=== PATIENT | male | born 1990 | race Caucasian/White ===

== ENCOUNTER 2019-09-27 22:05 | Inpatient (IN) | payer BC, SELFPAY ==
[~2019-09-27] VITALS: Ht 177.8 cm; Wt 146.5 kg
[2019-09-27 22:14] VITALS: BP 124/60
[2019-09-27] MEDS ORDERED: ACETAMINOPHEN EXTRA STRENGTH 500 MG TAB PO ONE (22:30)
--- NOTE | 2019-09-27 22:37 | NUR ---
RT AT BEDSIDE.
--- NOTE | 2019-09-27 22:40 | NUR ---
DR. HEAD AT BEDSIDE.
--- NOTE | 2019-09-27 22:40 | NUR ---
29 YEAR OLD MALE COMPLAINS OF ANXIETY, SHORTNESS OF BREATHE, AND COUGH X 1 DAYS. PATIENT HAS FEVER OF 104 IN TRIAGE. PATIENT STATES THAT HIS GRANDFATHER JUST OF COVID19 AN HOUR PRIOR TO ARRIVAL AND HE LIVES TOGETHER WITH HIM. PATIENT SPO2 55% ON RA, LABORED BREATHING, RR 30, RHONCHI BILATERAL. PATIENT PLACED ON 6L NC, SPO2 ROZINA TO 87%. PATIENT AOX4, SKIN WARM AND WET. PATIENT PLACED ON MONITOR. HR 128, BP 128/68. ERMD AT BEDSIDE OF PATIENT. PMH - DENIES ALLERGIES - NKA
--- NOTE | 2019-09-27 22:54 | NUR ---
xr at bedside.
--- NOTE | 2019-09-27 23:00 | NUR ---
RSV, CORONAVIRUS, AND INFLUENZA SWABS SENT TO LAB
[2019-09-27 23:36] LABS: BASOPHILS % (AUTO) 0.2 % (0.0-2.0); HEMATOCRIT 39.3 % (36-52); HEMOGLOBIN 12.9 g/dL (12.0-18.0); LYMPHOCYTES # (AUTO) 0.7 K/uL (2.0-11.5); LYMPHOCYTES % (AUTO) 8.9 % (20.5-51.1); MEAN CORPUSCULAR HEMOGLOBIN 28 pg (27-31); MEAN CORPUSCULAR HGB CONC 33 g/dL (33-37); MEAN CORPUSCULAR VOLUME 83.8 fL (80-94); MONOCYTES # (AUTO) 0.2 K/uL (0.8-1.0); MONOCYTES % (AUTO) 2.9 % (1.7-9.3); NEUTROPHILS # (AUTO) 6.5 K/uL (1.8-7.7); PLATELET COUNT (AUTO) 199 K/uL (140-450); RED BLOOD CELL COUNT(AUTO) 4.69 MIL/uL (4.20-6.10); RED CELL DISTRIBUTION WIDTH 14.5 % (11.6-13.7); WHITE BLOOD COUNT (AUTO) 7.4 K/uL (4.8-10.8)
--- NOTE | 2019-09-27 23:42 | NUR ---
PATIENT ALERT AND AWAKE, BREATHING EVEN AND LABORED. ERMD AWARE OF PT STATUS.
[2019-09-27 23:53] LABS: ALBUMIN 2.9 g/dL (3.4-5.0); ANION GAP 11.1 (8-16); CREATININE 1.1 mg/dL (0.6-1.3); POTASSIUM 3.1 mmol/L (3.5-5.1); TOTAL BILIRUBIN 0.7 mg/dL (0.0-1.0)
[2019-09-28] VITALS (45 sets, daily range): BP systolic 84–154; BP diastolic 29–96
[2019-09-28] MEDS ORDERED: NACL 0.9% 1,000 ML IV SCH (00:24)
[2019-09-28] MEDS ORDERED: AZITHROMYCIN 500 MG in DEXTROSE 5% 250 ML IV SCH (00:25)
[2019-09-28] MEDS ORDERED: HYDROcodone/APAP 5/325 MG 1 TAB TAB PO PRN (00:25)
[2019-09-28] MEDS ORDERED: ALBUTEROL HFA MDI 90 MCG/ACTUATION 8 GM INH PRN (00:25)
[2019-09-28] MEDS ORDERED: DOCUSATE SODIUM 100 MG GELCAP PO PRN (00:25)
--- NOTE | 2019-09-28 01:13 | NUR ---
PATIENT ALERT AND AWAKE, BREATHING EVEN AND UNLABORED
[2019-09-28 01:14] LABS: MAGNESIUM 1.9 mg/dL (1.8-2.4); PHOSPHORUS 1.9 mg/dL (2.5-4.9)
[2019-09-28 01:29] LABS: CKMB RELATIVE INDEX 0.2 (0.0-2.5)
--- NOTE | 2019-09-28 01:36 | NUR ---
Placed patient on high flow nasal cannula 50lpm fio2 50. Patient stable spo2 95 hr 107 bpm no resp distress at this time.
[2019-09-28 02:43] LABS: APPEARANCE,URINE SL CLOUDY (CLEAR); BILIRUBIN,URINE 1+ (NEGATIVE); BLOOD, URINE 2+ (NEGATIVE); COLOR,URINE DARK YELLOW (YELLOW); LEUKOCYTE ESTERASE ,URINE NEGATIVE (NEGATIVE); NITRITE, URINE NEGATIVE (NEGATIVE); UGLUCOSE TRACE (NEGATIVE)
[2019-09-28 03:05] LABS: BARBITURATE, URINE NEGATIVE ng/ml (NEG <=200); BENZODIAZEPINE, URINE NEGATIVE ng/mL (NEG <=200); CANNABINOID, URINE NEGATIVE ng/mL (NEG <=50); COCAINE, URINE NEGATIVE ng/mL (NEG <=300); OPIATE, URINE NEGATIVE ng/mL (NEG <=2000); PHENCYCLIDINE SCREEN,URINE NEGATIVE ng/mL (NEG <=25)
--- NOTE | 2019-09-28 03:15 | NUR ---
PATIENT ALERT AND AWAKE, BREATHING EVEN AND UNLABORED. SPO2 WOULD DIP TO 86% THEN GO RIGHT BACK TO 92-94%. ERMD AWARE.
[2019-09-28] MEDS ORDERED: cefTRIAXone 1,000 MG VIAL ONE (03:48)
[2019-09-28] MEDS ORDERED: SODIUM PHOSPHATE 15 MMOLE in NACL 0.9% 250 ML IV SCH ×2 (03:55→08:00)
[2019-09-28] MEDS ORDERED: POTASSIUM CHLORIDE 10 MEQ TABER PO SCH (04:00)
--- NOTE | 2019-09-28 04:00 | NUR ---
PATIENT PLACED INTO PRONE POSITION, SPO2 95%
[2019-09-28 04:14] LABS: URINE AMORPHOUS URATE 4+ /HPF (None Seen); WBC,URINE 0-5 /HPF (0-5)
[2019-09-28] MEDS ORDERED: AZITHROMYCIN 500 MG INJ VIAL IV ONE (04:44)
--- NOTE | 2019-09-28 04:50 | NUR ---
AZITHROMYCIN ADMINISTERED ORDERED
--- NOTE | 2019-09-28 05:00 | NUR ---
PATIENT PLACED BACK INTO HIGH FOWLERS POSITION, SPO2 89%. ERMD AWARE
--- NOTE | 2019-09-28 05:28 | NUR ---
PATIENT ALERT AND AWAKE, BREATHING EVEN AND UNLABORED. SPO2 CONTINUES TO GO BETWEEN 86% AND 94%. ERMD IS AWARE.
--- NOTE | 2019-09-28 05:55 | NUR ---
PATIENT PLACED BACK INTO PRONE POSITION, ALERT AND AWAKE, BREATHING EVEN AND UNLABORED. SPO2 CONTINUES TO DRIFT BETWEEN 89% AND 93%. ERMD AWARE
[2019-09-28 06:14] LABS: BASOPHILS % (AUTO) 0.6 % (0.0-2.0); EOSINOPHILS # (AUTO) 0.1 K/uL (0-0.4); EOSINOPHILS % (AUTO) 1.2 % (0.0-4.0); HEMOGLOBIN 12.9 g/dL (12.0-18.0); LYMPHOCYTES # (AUTO) 0.8 K/uL (2.0-11.5); LYMPHOCYTES % (AUTO) 9.4 % (20.5-51.1); MEAN CORPUSCULAR HEMOGLOBIN 28 pg (27-31); MEAN CORPUSCULAR HGB CONC 33 g/dL (33-37); MEAN CORPUSCULAR VOLUME 83.8 fL (80-94); MONOCYTES # (AUTO) 0.1 K/uL (0.8-1.0); MONOCYTES % (AUTO) 1.8 % (1.7-9.3); PLATELET COUNT (AUTO) 210 K/uL (140-450); RED BLOOD CELL COUNT(AUTO) 4.65 MIL/uL (4.20-6.10); RED CELL DISTRIBUTION WIDTH 14.3 % (11.6-13.7)
--- NOTE | 2019-09-28 06:30 | NUR ---
CALLED FLEET SERVICE MANAGER REGARDING SODIUM PHOSPHATE MEDICATION, [facility] WILL GIVE MEDICAITON AT 7AM
[2019-09-28 07:06] LABS: ANION GAP 8.4 (8-16); CREATININE 1.1 mg/dL (0.6-1.3); POTASSIUM 3.4 mmol/L (3.5-5.1)
[2019-09-28 07:09] LABS: CHOL/HDL RATIO 3.2 (1-4.5)
--- NOTE | 2019-09-28 07:15 | NUR ---
PT TO ICU 2 FROM ER, PT AWAKE ALERT O4, RESP EVEN UNLABORED ON HIGH FLOW NC WITH FIO2 70%, PT PLACED ON MONITOR, PT PLACED ON ENHANCED PRECAUTION AND DROPLET PREC FOR R/O COVID, PT SPEAKS CLEARLY, PT DENIES PAIN OR DISCOMFORT, PT STATES HIS GRANDFATHER JUST WITH COVID 19, HE IS ANXIOUS AND WORRIED, PT MOVES ALL EXTS, PT ABLE TO SIT UP AND POSITION HIMSELF, PT ORIENTED TO ROOM AND UNIT, CALL BELLWITHIN REACH, PLAN OF CARE REVIEWED, WILL CONTINUE TO MONITOR.
--- NOTE | 2019-09-28 07:15 | NUR ---
Patient will be admitted to care of DR BARNHART. Admited to ICU. Will go to room 2. Belongings list completed. Report to MYRANDA SIMS. Nurse notified that sodium phosphate medication must still be administered
[2019-09-28] MEDS: ASCORBIC ACID 500 MG TAB PO SCH (08:12)
[2019-09-28] MEDS: ZINC SULF 220 MG CAP PO SCH (08:13)
[2019-09-28] MEDS: ENOXAPARIN 40 MG/0.4 ML SYR SUBQ SCH (08:14)
--- NOTE | 2019-09-28 08:35 | NUR ---
PT SITTING UP AT SIDE OF BED, EATING BREAKFAST. PT C/O FEELING HOT, DIAPHORETIC, ISOLATION ROOM VERY WARM WITH HEPA FILTER, PT REQUESTS ROOM TEMP TO BE LOWERED, WILL CALL ENGINEERING, TEMP 102.3 TA, WILL GIVE TYLENOL. ICE WATER GIVEN PER REQUEST.
--- NOTE | 2019-09-28 08:37 | NUR ---
PATIENT HAS BEEN SCREENED AND CATEGORIZED HIGH NUTRITION RISK. PATIENT WILL BE SEEN WITHIN 1-2 DAYS OF ADMISSION. 09/28/19-09/29/[address]
[2019-09-28] MEDS: ACETAMINOPHEN 325 MG TAB PO PRN (09:00)
[2019-09-28] MEDS ORDERED: HYDROXYCHLOROQUINE 200 MG TAB PO SCH (09:00)
--- NOTE | 2019-09-28 09:15 | NUR ---
PT INTERMITTENTLY DROPS O2 SAT LOW 70'S, DR CROOK AND DR BUSTAMANTE MADE AWARE, PRONE POSITION ENCOURAGED, PT STATES IT MAKES HIM VERY UNCOMFORTABLE, REFUES TO GO PRONE AT THIS TIME, PT WANTS TO SIT ON CHAIR INSTEAD. DR CROOK AWARE.
[2019-09-28] MEDS ORDERED: LORazepam 2 MG/ML VIAL ONE (09:36)
[2019-09-28] MEDS ORDERED: LORazepam 2 MG/ML VIAL IM/IVP SCH (09:41)
--- NOTE | 2019-09-28 10:15 | NUR ---
PT STATES HE IS VERY WORRIED, ANXIOUS, REQUESTS SOMETHING TO HELP HIM REST, HE ALSO REQUESTS TO SPEAK TO MD, DR CROOK CALLED PT ON CELL PHONE FROM OUTSIDE THE ROOM TO TALK POC AND CURRENT CONDITION, ATIVAN GIVEN IVP.
[2019-09-28] MEDS ORDERED: ADENOSINE 6 MG/2 ML VIAL IVP ONE (11:15)
--- NOTE | 2019-09-28 11:45 | NUR ---
09/28/19 RD INITIAL ASSESSMENT COMPLETED PLEASE REFER TO NUTRITION ASSESSMENT UNDER CARE ACTIVITY FOR ESTIMATED NUTRITIONAL NEEDS. 1. CONTINUE CARDIAC DIET TOLERATED 2. RECOMMEND ENSURE MAX ONCE DAILY 3. IF PO INTAKE <50% CONSIDER RECOMMEND ENSURE MAX BID 4. RD TO FOLLOW-UP 3-5 DAYS, MODERATE RISK DEB YUN RD
--- NOTE | 2019-09-28 12:30 | NUR ---
PT SITTING UP AT SIDE OF BED, O2SAT 60-85% ON HIGH FLOW FIO2 100% AT 30L, PT SPEAKS CLEARLY, DENIES SOB, INTERMITTENT DRY COOUGH, RT INFORMED, DR CROOK / DR BUSTAMANTE NOTIFIED. PT PLACED ON PRONE POSITION, PULSE OX PROBE CHANGED, DR CROOK ON THE PHONE WITH DR CURRY. HR 120'S, RR 20-28, BP 131/73
[2019-09-28] MEDS: HYDROXYCHLOROQUINE 200 MG TAB PO SCH ×2 (12:44→22:00)
[2019-09-28] MEDS ORDERED: PROPOFOL 1000 MG/100 ML PREMIX 100 ML IV ONE (13:52)
--- NOTE | 2019-09-28 14:00 | NUR ---
DR MORALES AT BEDSIDE, RT BETTY AT BEDSIDE PROCEDURE EXPLAINED TO PT AGREES, ETT PLACED 8.0, 23CM AT TEETH
[2019-09-28] MEDS ORDERED: DILTIAZEM 25 MG/5 ML VIAL IVP ONE (14:03)
[2019-09-28] MEDS ORDERED: fentaNYL 1 MG in NACL 0.9% 80 ML IV PRN (14:05)
[2019-09-28] MEDS ORDERED: PROPOFOL 1000 MG/100 ML PREMIX 100 ML IV PRN (14:05)
[2019-09-28] MEDS ORDERED: MIDAZOLAM MDV 50 MG in NACL 0.9% 40 ML IV PRN (14:05)
--- NOTE | 2019-09-28 14:05 | NUR ---
PT INTUBATED WITH 8.0 ETT SECURED @23TEETH/GUM. PT PLACED ON VENT SETTINGS AC 16, VT 500, PEEP 16 AND FIO2 100%. BILATERAL BREATH SOUNDS. VENT IS PLUGGED INTO A RED OUTLET WITH ALARMS ON AND FUNCTIONING. AIRWAY IS PATENT AND ETT IS SECURE. WILL CONTINUE TO MONITOR.
[2019-09-28] MEDS ORDERED: DILTIAZEM 25 MG/5 ML VIAL IVP SCH (14:06)
--- NOTE | 2019-09-28 14:15 | NUR ---
HR 140-150, BP177/92, CARDIZEM 15MG GIVEN PER DR MORALES.
--- NOTE | 2019-09-28 14:32 | NUR ---
ABG RESULTS GIVEN TO . PHYSICIAN NOTIFIED ATTENDING PUMP RUNNER AND NEW VENT SETTINGS ORDER AC 22, VT 450 , PEEP 16, FIO2 100%. WILL CONTINUE TO MONITOR.
--- NOTE | 2019-09-28 14:40 | NUR ---
OGT PLACED, MONTERO PLACED, COFFEE GROUND LARGE AMT DRAINED FROM OG, DR BUSTAMANTE/DR RCOOK AWARE, PLACE ON LOW IN TERMITTENT SUX.
--- NOTE | 2019-09-28 15:08 | NUR ---
DC PLANNIN YRS OLD MALE PATIENT WAS ADMITTED FROM HOME WITH A DX OF PNA, R/O COVID, RESP FAILURE. PT HAS A HX OF ASTHMA, CXRAY PATCHY BILATERAL PULMONARY INFILTRATE RT GREATER THAT LEFT , RT PROTOCOL W/MDI ALBUTEROL PRN SOB . STARTED IV AZITHROMYCIN AND ZINC 200 MG PO . INFLUENZA A&B NEGATIVE, BLOOD AND URINE CULTURE PENDING. PULMO AND ID CONSULT. CM TO FOLLOW Addendum: 09/29/19 at 0900 by Mary Mortensen CM ORALLY INTUBATED TO VENT, FIO2 70%, O2 SAT 96%. SEDATED WITH FENTANYL AND VERSED. CURRENT LABS INCLUDE WBC 9.7, H/H 12.3/37, NA/K 133/4.0, BUN/CREA 24/1.7.5 AND D DIMER 1380. COVID 19 RESULTS STILL PENDING. ON AZITHROMYCIN, ROCEPHIN AND SOLU-MEDROL. ON BREATHING TREATMENT. ID, CARDIO AND ULMO CONSULTS IN PLACE. DC PLAN PENDING ON PATIENT'S RESPONSE TO TREATMENT. Addendum: 10/01/19 at 0848 by Mary Mortensen CM STILL IN ICU. ORALLY INTUBATED TO VENT FIO2 40%, O2 SAT 99%. SEDATED WITH VERSED AND FENTANYL DRIPS. STILL ON PLAQUENIL, AZITHROMYCIN AND ROCEPHIN. (+) COVID AND (-) FOR INF A AND B CURRENT LABS INCLUDE WBC 7.3, H/H 10.7/32.7, NA/K 139/3.9, BUN/CREA 73/2.5 AND LACTIC ACID 2.3. BLOOD CS SHOWED NO GROWTH AFTER 48 HOURS. URINE CS NO GROWTH. SPUTUM CS PRELIMINARY RESULTS SHOWED RARE GRAM POSITIVE COCCI. SEEN BY PULMO AND ID CONSULTS. DC PLAN PENDING ON PATIENT'S RESPONSE TO TREATMENT. Addendum: 10/01/19 at 1432 by Mary Mortensen PER , [facility] [phone] OF [facility] [employer] [facility], ASKING ABOUT DC PLAN. UPDATED OF THE PATIENT'S CONDITION. Addendum: 10/02/19 at 1531 by Mary Mortensen CM STILL IN ICU, ORALLY INTUBATED TO VENT, FIO2 35% AND O2 SAT 97%. CURRENT LABS INCLUDE WBC 8.4, H/H 10.8/31.9, NA/K 145/3.7, BUN/CREA 88/1.9, MAG 3.5 AND LACTIC ACID 2.9. ON AZITHROMYCIN, PLAQUENIL AND ROCEPHIN. SEDATED WITH MORPHINE DRIP. PULMO, ID AND NEPHRO CONSULTS IN PLACE. DC PLAN PENDING ON PATIENT'S RESPONSE TO TREATMENT. Addendum: 10/03/19 at 1126 by Mary Mortensen CM CONTACTED [facility] AT [phone], PROVIDED HER VERBAL UPDATES ON THE PATIENT'S CONDITION. SHE STATED SHE RECEIVED CLINICALS AND IS IN THE PROCESS OF REVIEWING IT. SHE ALSO STATED SINCE THE PATIENT IS STILL IN ICU, INTUBATED, SEDATED AND COVID POSITIVE THEY WILL EXTEND THE AUTH AND WILL BE FAXING IT. Addendum: 10/04/19 at 1059 by Mary Mortensen CM ON PRONING. MAX ON MORPHINE AND PROPOFOL SEDATION. NO PRESSORS. ETT TO TULIO, FIO2 35% AND O2 SAT 98%. STILL ON SOLU-MEDROL AND ROCEPHIN. ID, NEPHRO, PULMO IN PLACE. DC PLAN PENDING ON PATIENT'S RESPONSE TO TREATMENT. Addendum: 10/05/19 at 1102 by Mary Mortensen CM ABLE TO TOLERATE 1 HOUR OF CPAP TRIAL YESTERDAY. FOR CPAP TRIAL AGAIN TODAY. Addendum: 10/08/19 at 1505 by Leni Barajas CM DC PLANNING: PATIENT STILL HAVE MONTERO CATH , FEELING BETTER D-DIMER 2800 , CONTACT AND DROPLET ISOLATION CONTINUED DR GAVIRIA RECOMMENDED TO CONTINUE CURRENT IV ABX ROCEPHIN AND AZITHROMYCIN . DC PLAN PER RECOMMENDATIONS CM TO FOLLOW . Addendum: 10/09/19 at 1406 by Serenity Lloyd CM Received CM order to arrange home O2. Spoke to [facility] DC financial plannerNeda, who stated [facility] has a contract with [employer]. Request faxed to [facility]; [facility] will continue following up as needed. [facility] phone . REGINA Harvey Ext [phone] Addendum: 10/09/19 at 1537 by Serenity Lloyd CM O2 to be provided by [facility]. Portable will be delivered to [facility] front lobby and [facility] will arrange with family to deliver the concentrator. REGINA Harvey Ext [phone] Addendum: 10/09/19 at 1642 by Leni Barajas CM DC PLANNING: [employer] WILL DELIVER THE PORTABLE O2 AT [facility] BETWEEN 4-8PM AND WILL DELIVER O2 TANK AT PT'S HOME.PT CAN BE DC HOME ONCE HE GETS THE POTABLE O2 .
--- NOTE | 2019-09-28 15:08 | NUR ---
DR LAY AT BEDSIDE FOR CENTRAL LINE PLACEMENT
[2019-09-28] MEDS ORDERED: ROCURONIUM 50 MG/5 ML VIAL IV SCH (15:30)
--- NOTE | 2019-09-28 15:40 | NUR ---
PT CONTINUES WITH LOW O2 SAT DR CURRY CALLED BY DR CROOK, 50MG ROCURONIUM GIVEN IVP AT THIS TIME. DR LAY CONTINUES TO ATTEMPT CENTRAL LINE PLACEMENT. RT HERNÁNDEZ AT BEDSIDE TO ADJUST VENT SETTINGS
--- NOTE | 2019-09-28 16:40 | NUR ---
PT PLACED IN PRONE POSITION BY RT BETTY, DR CROOK, DR LAY, DR BUSTAMANTE, & 2 OTHER STAFF, BONY PRONIMENCES COVERED WITH FOAM DRESSING, PILLOWS UNDER PT. ETT REMAINS IN PLACE, HEAD ON FOAM PILLOW. Addendum: 09/28/19 at 2200 by Beatriz Gurrola RN BED IN [facility]
[2019-09-28] MEDS ORDERED: fentaNYL 0.05 MG/ML VIAL ONE (16:50)
--- NOTE | 2019-09-28 17:00 | NUR ---
IV ACCIDENTALLY DISLODGED DURING TURNING, NEW IV STARTED TO LEFT HAND 22G, PT AROUSING, 100MCG FENTANYL PIV PUSH GIVEN PER DR CURRY, DR CURRY ON THE UNIT.
--- NOTE | 2019-09-28 17:13 | NUR ---
BEDSIDE VENT SETTINGS AC 22, VT 450, PEEP 18 AND FIO2 100%. WILL CONTINUE TO MONITOR ABG IN 1 HOUR.
[2019-09-28] MEDS: MIDAZOLAM MDV 100 MG in NACL 0.9% 80 ML IV PRN ×2 (17:45→23:15)
--- NOTE | 2019-09-28 18:05 | NUR ---
DR CURRY NOTIFIED THAT PT IS ON PROPOFOL AT MAX DOSE, PT WITH COFFEE COLOR OGT DRAINAGE 250ML.
[2019-09-28] MEDS ORDERED: ACETAMINOPHEN 650 MG SUPP RC ONE (18:07)
--- NOTE | 2019-09-28 18:15 | NUR ---
TEMP 103.4 RECTALLY, TYLENOL 650MG GIVEN CT AT THIS TIME, COOLING MEASURE WITH WET CLOTHS.
[2019-09-28] MEDS ORDERED: fentaNYL 0.05 MG/ML VIAL IVP ONE (18:35)
[2019-09-28] MEDS ORDERED: ACETAMINOPHEN 650 MG SUPP RC PRN (19:10)
--- NOTE | 2019-09-28 19:30 | NUR ---
RECEIVED BEDSIDE REPORT FROM AM SHIFT RN MYRANDA, FOR PT'S CONTINUITY OF CARE. PT IS INTUBATED ETT TO VENT, SEDATED, ON PRONE POSITION, OG TUBE IN PLACE ON LOW INTERMITTENT SUCTION, HAS LEFT HAND 22G WITH PROPOFOL INFUSING, AND LEFT FOOT 22G INFUSING WITH FENTANYL AND MIDAZOLAM, PT SATURATION AT 99%. COOLING MEASURES, SAFETY MEASURES, AND ISOLATION PRECAUTION IN PLACE. WILL MONITOR PT THROUGHOUT SHIFT.
--- NOTE | 2019-09-28 19:30 | NUR ---
REPORT GIVEN TO DITCH CLEANER NURSE, PT SEDATED TO RASS-3, ETT TO VENT, ACVC [id number], 450,22,PEEP18, PT IN PRONE POSITION, LEFT ARM UP BY FACE, RIGHT ARM ON HIS SIDE, PIV 22G TO LEFT HAND, 22G TO LEFT FOOT, SITES WNL, VITALS STABLE ON MONITOR, PT ON FENTANYL AT 1MCG/KG/HR, VERSED 7MG/HR, PROPOFOL 30MCG/KG/MIN (25.2ML/HR).
--- NOTE | 2019-09-28 20:30 | NUR ---
PT TEMP TAKEN RECTALLY - 101.4, COOLING MEASURES IN PLACE. PICC RN SETTING UP FOR PICC LINE INSERTION, STAFF TURNED PT TO SUPINE FOR INSERTION, PT OXYGEN SATURATION AT 98%. WILL CONFIRM PLACEMENT WITH XRAY.
--- NOTE | 2019-09-28 20:32 | NUR ---
AT 1925 ABG RESULTS WERE REPORTED TO DR. CURRY. PER DR. CURRY TITRATE FiO2 PER PROTOCOL AND KEEP SPO2 >90%. NO OTHER CHANGES WERE MADE ON VENT SETTINGS. RECEIVED REPORT FROM AM SHIFT. PATIENT SEEN AND ASSESSED. PATIENT IS BEING PRONE. PATIENT IS INTUBATED WITH ETT SIZE 8.0 AND SECURED WITH ANCHOR-FAST AT 23CM. FOUND PATIENT ON VENT SETTINGS: AC/VC 22, 450, +18, 100% WITH SPO2 OF 98%. FiO2 TITRATED TO 80% WITH SPO2 OF 94%. AUSCULTATION REVEALS COARSE BILATERAL BREATH SOUNDS. VENT PLUGGED IN RED OUTLET, ALARMS SET AND AUDIBLE, AND BVM AT BEDSIDE. PATIENT IS IN NO APPARENT RESPIRATORY DISTRESS AT THIS TIME. WILL CONTINUE TO MONITOR PATIENT.
[2019-09-28] MEDS: methylPREDNISolone SS 40 MG/ML VIAL IVP SCH (21:15)
--- NOTE | 2019-09-28 21:35 | NUR ---
PICC LINE VERIFIED VIA XRAY. OK TO USE PER PICC LINE RN. FENTANYL, MIDAZOLAM, AND PROPOFOL CONNECTED TO THE RIGHT UPPER PICC LINE. PT TURNED BACK TO PRONE POSITION. PT SATURATION AT 90%.
[2019-09-28] MEDS: ACETAMINOPHEN 650 MG SUPP RC PRN (22:12)
--- NOTE | 2019-09-28 22:15 | NUR ---
ADMINISTERED ACETAMINOPHEN SUPPOSITORY AND HYDROXYCHLOROQUINE PO. COOLING MEASURES IN PLACE. INTERMITTENT SUCTION IN PLACE. WILL CONTINUE TO MONITOR.
--- NOTE | 2019-09-28 22:40 | NUR ---
AT APPROXIMATELY 2109 PATIENT WAS TURNED TO SUPINE POSITION FOR PICC LINE. PATIENT STARTED TO DESAT. FiO2 WAS INCREASED TO 100% AND PEEP TO 20 CMH20 WITH SPO2 OF 91%. DR. ABRAHAM AT BEDSIDE. AT 2129 PATIENT WAS TURNED BACK TO PRONE POSITION AFTER PROCEDURE. FiO2 TITRATED TO 80% AND PEEP BACK TO [address] ABRAHAM AT BEDSIDE. WILL CONTINUE TO MONITOR PATIENT.
--- NOTE | 2019-09-28 23:35 | NUR ---
RECTAL TEMP TAKEN - 100.1, COOLING MEASURES/COLD WASHCLOTHS IN PLACE. NO RESPIRATORY DISTRESS NOTED. NEW IV FENTANYL AND MIDAZOLAM ADMINISTERED. WILL CONTINUE TO MONITOR PT.
[2019-09-29] VITALS (105 sets, daily range): BP systolic 89–130; BP diastolic 38–87
[2019-09-29] MEDS ORDERED: MIDAZOLAM MDV 100 MG in NACL 0.9% 80 ML IV PRN ×2
--- NOTE | 2019-09-29 01:30 | NUR ---
RT AND CAT SWAMPER REPOSITIONED PT'S HEAD AND HAND. NO RESPIRATORY DISTRESS NOTED, ETT IN PLACE. PT MADE COMFORTABLE. INTERMITTENT SUCTION STILL IN PLACE.
--- NOTE | 2019-09-29 01:30 | NUR ---
REPOSITIONED PATIENT'S HEAD AND HAND. PATIENT TOLERATED PROCEDURE WELL WITH NO RESPIRATORY DISTRESS. AIRWAY PATENT. FiO2 TITRATED TO 70% WITH SPO2 OF 95%. WILL CONTINUE TO MONITOR PATIENT.
--- NOTE | 2019-09-29 04:01 | NUR ---
PT SATURATION AT 99% FIO2 AT 70%, HR AT 106, BP 130/76, NO RESPIRATORY DISTRESS NOTED. ETT PATENT, IV PICC LINE PATENT AND INTACT. WILL CONTINUE TO MONITOR PT.
[2019-09-29 04:59] LABS: BASOPHILS % (AUTO) 0.3 % (0.0-2.0); HEMATOCRIT 37.5 % (36-52); HEMOGLOBIN 12.3 g/dL (12.0-18.0); LYMPHOCYTES # (AUTO) 0.3 K/uL (2.0-11.5); LYMPHOCYTES % (AUTO) 3.6 % (20.5-51.1); MEAN CORPUSCULAR HEMOGLOBIN 28 pg (27-31); MEAN CORPUSCULAR HGB CONC 33 g/dL (33-37); MEAN CORPUSCULAR VOLUME 84.6 fL (80-94); MONOCYTES # (AUTO) 0.2 K/uL (0.8-1.0); MONOCYTES % (AUTO) 2.1 % (1.7-9.3); NEUTROPHILS # (AUTO) 9.1 K/uL (1.8-7.7); PLATELET COUNT (AUTO) 188 K/uL (140-450); RED BLOOD CELL COUNT(AUTO) 4.43 MIL/uL (4.20-6.10); RED CELL DISTRIBUTION WIDTH 14.9 % (11.6-13.7); WHITE BLOOD COUNT (AUTO) 9.7 K/uL (4.8-10.8)
--- NOTE | 2019-09-29 05:00 | NUR ---
RECTAL TEMP 101.8, COOLING MEASURES IN PLACE, TYLENOL SUPPOSITORY GIVEN, BLOOD DRAW FROM PICC LINE NO RESISTANCE, OGT DRAIN 250ML, URINE OUTPUT 200ML, CHG BATH/WIPE GIVEN, PT MADE COMFORTABLE, NO RESPIRATORY DISTRESS NOTED. WILL CONTINUE TO MONITOR PT.
[2019-09-29] MEDS: ACETAMINOPHEN 650 MG SUPP RC PRN ×3 (05:09→23:27)
--- NOTE | 2019-09-29 05:55 | NUR ---
PATIENT HEAD AND HAND WERE REPOSITIONED. CLOSE SUCTION ELLER CHANGED. PATIENT STILL REMAINS ON VENTILATOR SUPPORT. NO CHANGE IN VENT SETTINGS AT THIS TIME. PER PROTOCOL, FiO2 HAS BEEN TITRATED TO 70%. AIRWAY IS PATENT. NO RESPIRATORY DISTRESS NOTED AT THIS MOMENT. WILL CONTINUE TO MONITOR PATIENT.
[2019-09-29] MEDS: fentaNYL 1 MG in NACL 0.9% 80 ML IV PRN ×3 (06:32→22:04)
[2019-09-29 06:36] LABS: ANION GAP 10.6 (8-16); CARBON DIOXIDE 31.4 mmol/L (21-32); CREATININE 1.7 mg/dL (0.6-1.3)
--- NOTE | 2019-09-29 06:45 | NUR ---
RECEIVED INTUBATED PT WITH A 8.0 ETT SECURED @23 TEETH/GUM ON VENT. SETTINGS AC 22, VT 450, PEEP 18 AND FIO2 70%. PT IN THE PRONE POSITION AT THIS TIME TOLERATING VENT SETTINGS WELL, NOT IN ANY DISTRESS. AIRWAY IS PATENT AND SECURE. VENT IS PLUGGED INTO A RED OUTLET WITH ALARMS ON AND FUNCTIONING. WILL CONTINUE TO MONITOR.
--- NOTE | 2019-09-29 06:55 | NUR ---
ABG RESULTS GIVEN TO WHO CONTACTED ROLL SHEETING CUTTER WITH RESULTS NO NEW VENT CHANGES AT THIS TIME. WILL CONTINUE TO MONITOR.
[2019-09-29] MEDS: methylPREDNISolone SS 40 MG/ML VIAL IVP SCH ×3 (07:00→21:59)
--- NOTE | 2019-09-29 07:25 | NUR ---
RECEIVED REPORT FROM NIGHT NURSE HENRIETTA. PT IN PRONE POSITION RASC SCORE -4 RECEIVING FENTANYL AND VERSED IN R UA PICC LINE PER ORDER. L FOOT 22G IV PRESENT INFUSING IVF AND ABX. ETT TO VENT, O2 SAT 98%. OG TUBE IN PLACE ON INTERMITTENT SUCTION. COOLING AND ISOLATION MEASURES IN PLACE. WILL CONTINUE TO MONITOR.
[2019-09-29] MEDS: MIDAZOLAM MDV 100 MG in NACL 0.9% 80 ML IV PRN ×2 (07:33→22:05)
[2019-09-29 07:34] LABS: MAGNESIUM 2.2 mg/dL (1.8-2.4); PHOSPHORUS 4.2 mg/dL (2.5-4.9)
--- NOTE | 2019-09-29 08:42 | NUR ---
TALKED TO PTS SISTER ON THE PHONE AND UPDATED HER ON CONDITION OF PT. WILL CONTINUE TO MONITOR.
[2019-09-29] MEDS ORDERED: AZITHROMYCIN 500 MG in DEXTROSE 5% 250 ML IV SCH (09:00)
[2019-09-29] MEDS ORDERED: HYDROXYCHLOROQUINE 200 MG TAB PO SCH (09:00)
[2019-09-29] MEDS ORDERED: AZITHROMYCIN 250 MG TAB PO SCH (09:00)
[2019-09-29] MEDS: AZITHROMYCIN 250 MG in DEXTROSE 5% 250 ML IV SCH (09:16)
[2019-09-29] MEDS: ASCORBIC ACID 500 MG TAB PO SCH (09:18)
[2019-09-29] MEDS: HYDROXYCHLOROQUINE 200 MG TAB PO SCH (09:18)
[2019-09-29] MEDS: ZINC SULF 220 MG CAP PO SCH (09:19)
[2019-09-29] MEDS: ENOXAPARIN 40 MG/0.4 ML SYR SUBQ SCH ×2 (09:25→21:59)
--- NOTE | 2019-09-29 09:49 | NUR ---
MEDICATIONS ADMINISTERED PER ORDER. UNABLE TO GIVE PO MEDICATIONS DUE TO PTS POSITION APPARENTLY IMPEDING ENTERING OF MEDS. WILL RETRY AT A LATER TIME. TEMP 100.2 AT THIS TIME. RASC -4. NO DISTRESS NOTED.
[2019-09-29] MEDS: FUROSEMIDE 20 MG/2 ML VIAL IVP SCH (10:15)
--- NOTE | 2019-09-29 11:32 | NUR ---
PT IN BED RASS OF -4. RESPIRATIONS EVEN AND UNLABORED ON ETT TO VENT. VITAL SIGNS STABLE. SAFETY MEASURES IN PLACE. WILL CONTINUE TO MONITOR.
[2019-09-29] MEDS ORDERED: ENOXAPARIN 100 MG/ML SYR SUBQ SCH (12:00)
--- NOTE | 2019-09-29 13:22 | NUR ---
PT IN PRONE POSITION, NO RESPIRATORY DISTRESS NOTED. RASS OF -4. SAFETY MEASURES IN PLACE. WILL CONTINUE TO MONITOR.
--- NOTE | 2019-09-29 13:59 | NUR ---
PT REMAINS IN PRONE POSITION NOT IN ANY DISTRESS AT THIS TIME. VENT ALARMS ON AND FUNCTIONING. ETT SECURE. WILL CONTINUE TO MONITOR.
--- NOTE | 2019-09-29 14:28 | NUR ---
PT OUT OF PRONE POSITION WITH HEAD OF BED ELEVATED. ETT IS SECURE WITH A PATENT AIRWAY. PT NOT IN ANY DISTRESS AT THIS TIME.
--- NOTE | 2019-09-29 14:31 | NUR ---
PT IN SUPINE POSITION AFTER 16HS IN PRONE POSITION. PT TOLERATED WELL, NO RESPIRATORY DISTRESS NOTED. TEMP TAKEN WITH TEMPORAL ARTERY 97.7, WILL RECHECK. LINEN CHANGED. MONTERO CARE DONE. WILL CONTINUE TO MONITOR.
--- NOTE | 2019-09-29 15:46 | NUR ---
ABG RESULTS GIVEN TO AND FORWARD TO . COMMUNICATION MANAGER REQUEST PT TO BE PLACED IN PRONE POSITION @2100. NEW VENT SETTINGS AC 26, VT 450, PEEP 16 AND FIO2 70%. WILL CONTINUE TO MONITOR.
--- NOTE | 2019-09-29 16:18 | NUR ---
VENT SETTINGS CHANGED TO AC 26, VT 450, PEEP 16 AND FIO2 70%. NURSE AWARE OF CHANGE. WILL CONTINUE TO MONITOR.
--- NOTE | 2019-09-29 17:26 | NUR ---
PT NOT IN ANY DISTRESS AT THIS TIME. REMAINS ON DOCUMENTED VENT SETTINGS. VENT ALARMS ON AND FUNCTIONING. AIRWAY IS PATENT AND SECURE.
--- NOTE | 2019-09-29 18:14 | NUR ---
PT REPOSITIONED, TUBE FEEDING RATE INCREASED FROM 20ML/H TO 40ML/H AFTER 0 RESIDUALS. NO RESPIRATORY DISTRESS NOTED. WILL CONTINUE TO MONITOR.
--- NOTE | 2019-09-29 19:04 | NUR ---
PT ENDORSED TO NIGHT NURSE FOR CONTINUITY OF CARE.
--- NOTE | 2019-09-29 19:30 | NUR ---
RECEIVED PT FROM BRANDY SIMS, PT RASS -4 DRY WEIGHT 140 KG, PICC EFE INFUSING FENTANYL 0.01 MCG/KG/HR, VERSED 7 MG/HR, ETT TO VENT SETTINGS FIO2 70 VT 450 RR 26 PEEP 16, PT HAS OGT TO FEEDING COSMOLITE 1.2 40 ML AT ENDORSEMENT GOAL 70ML/HR WATER FLUSH 100 ML Q6HR, PT HAS LEFT FOOT 22 G. S1 S2 HEART SOUNDS HEARD LUNG SOUNDS CLEAR UPPER LOWER LOBES, PULSES PALPABLE BILATERAL UPPER AND LOWER EXTREMITIES, PT HAS MONTERO CATHETER IN PLACE DRAINING CLOUDY YELLOW URINE, HOB 30 DEGREES PER PROTOCOL, BED IN [facility] WITH SAFETY PROTOCOLS IN PLACE, WILL CONTINUE TO MONITOR PT. Addendum: 09/30/19 at 0543 by Marco Bishop RN FENTANYL 1 MCG/KG/HR
[2019-09-29] MEDS ORDERED: LOVENOX 1MG/KG Q12H SUBQ SCH (21:00)
[2019-09-29] MEDS: PANTOPRAZOLE 40 MG INJ VIAL IVP SCH (21:59)
[2019-09-29] MEDS: ENOXAPARIN 100 MG/ML SYR SUBQ SCH (21:59)
--- NOTE | 2019-09-29 23:30 | NUR ---
PT PLACED IN PRONE POSITION, REVERSE TRENDELENBURG, BED BATH, MONTERO CARE, VAP CARE PROVIDED, RT AT BEDSIDE PT HAS TEMP 101.9 TYLENOL 650 MG SUPPOSITORY GIVEN WILL REEVALUATE PT, PT TOLERATING ACTIVITIES, WILL CONTINUE TO MONITOR
--- NOTE | 2019-09-29 23:55 | NUR ---
PT PLACED IN PRONE POSITION. HEAD TURNED TO THE RIGHT. ETT SECURED AT DOCUMENTED SETTINGS. PT IS IN NO DISTRESS. WILL CONT TO MONITOR. RN AT BEDSIDE
[2019-09-30] VITALS (99 sets, daily range): BP systolic 80–120; BP diastolic 32–64
--- NOTE | 2019-09-30 01:34 | NUR ---
REASSED PT TEMP, TEMP DECREASED TO 99.5 F RECTAL, WILL CONTINUE TO MONITOR PT.
--- NOTE | 2019-09-30 04:30 | NUR ---
PT REMAINS SEDATED RASS -4, PT REMAINS PRONE, PT TEMP INCREASED TO 100.3 PROVIDED COOLING MEASURES FOR PT, WILL CONTINUE TO MONITOR
[2019-09-30 05:20] LABS: BASOPHILS % (AUTO) 0.4 % (0.0-2.0); HEMATOCRIT 33.4 % (36-52); HEMOGLOBIN 10.8 g/dL (12.0-18.0); LYMPHOCYTES # (AUTO) 0.3 K/uL (2.0-11.5); LYMPHOCYTES % (AUTO) 5.1 % (20.5-51.1); MEAN CORPUSCULAR HEMOGLOBIN 28 pg (27-31); MEAN CORPUSCULAR HGB CONC 32 g/dL (33-37); MEAN CORPUSCULAR VOLUME 85.3 fL (80-94); MONOCYTES # (AUTO) 0.2 K/uL (0.8-1.0); MONOCYTES % (AUTO) 3.4 % (1.7-9.3); NEUTROPHILS # (AUTO) 5.9 K/uL (1.8-7.7); NEUTROPHILS % (AUTO) 91.1 % (42.2-75.2); PLATELET COUNT (AUTO) 204 K/uL (140-450); RED BLOOD CELL COUNT(AUTO) 3.91 MIL/uL (4.20-6.10); RED CELL DISTRIBUTION WIDTH 14.9 % (11.6-13.7); WHITE BLOOD COUNT (AUTO) 6.4 K/uL (4.8-10.8)
--- NOTE | 2019-09-30 05:34 | NUR ---
PT REMAINS ON DOCUMENTED SETTING. BMV AT BEDSIDE. ALARMS AUDIBLE. ETT SECURED AND INTACT. NO DISTRESS NOTED
[2019-09-30 06:39] LABS: ANION GAP 7.4 (8-16); CARBON DIOXIDE 34.6 mmol/L (21-32); CREATININE 2.7 mg/dL (0.6-1.3)
[2019-09-30] MEDS ORDERED: fentaNYL 0.05 MG/ML VIAL ONE (07:00)
[2019-09-30] MEDS: fentaNYL 1 MG in NACL 0.9% 80 ML IV PRN ×3 (07:09→21:59)
[2019-09-30 07:32] LABS: PHOSPHORUS 3.4 mg/dL (2.5-4.9)
--- NOTE | 2019-09-30 07:59 | NUR ---
RECEIVED INTUBATED PT WITH A 8.0 ETT SECURED @23 TEETH/GUM ON VENT. SETTINGS AC 26, VT 450, PEEP 16 AND FIO2 TITRATED TO 60%. PT IN THE PRONE POSITION AT THIS TIME TOLERATING VENT SETTINGS WELL, NOT IN ANY DISTRESS. AIRWAY IS PATENT AND SECURE. VENT IS PLUGGED INTO A RED OUTLET WITH ALARMS ON AND FUNCTIONING. WILL CONTINUE TO MONITOR.
--- NOTE | 2019-09-30 08:04 | NUR ---
PT SEDATED, RASS-4 NO ACUTE DISTRESS @ THIS TIME. SAFETY PRECAUTIONS IN PLACE. BED IN REVERSE [place]. LOCKED IN LOWEST POSITION. PT PRONE @ THIS TIME PER MD ORDER. SINUS TACH 100S, BP 101/56 SPO2 98% ETT TO VENT. WILL CONTINUE TO OBSERVE.
--- NOTE | 2019-09-30 08:12 | NUR ---
CRITICAL ABG RESULTS GIVEN TO ORDERING PHYSICIAN .
--- NOTE | 2019-09-30 08:25 | NUR ---
RECEIVED REPORT FROM NIGHT NURSE KIP. PT IN PRONE POSITION, RASS -4, NO RESPIRATORY DISTRESS NOTED ON ETT TO VENT. SKIN INTACT. MONTERO IN PLACE. TUBE FEEDING RUNNING PER ORDER RECEIVING OSMOLITE 1.5. DROPLET ISOLATION FOR COVID-[address] PT ON FENTANYL AND VERSED FOR SEDATION. SAFETY MEASURES IN PLACE. WILL CONTINUE TO MONITOR.
--- NOTE | 2019-09-30 08:26 | NUR ---
ENDORSED CARE TO DAY SHIFT LEVI PEREZ FOR CONTINUITY OF CARE.
--- NOTE | 2019-09-30 09:04 | NUR ---
CALLED PTS SISTER VANDA AND UPDATED HER ON PT STATUS.
[2019-09-30] MEDS: methylPREDNISolone SS 40 MG/ML VIAL IVP SCH ×2 (09:40→20:48)
[2019-09-30] MEDS: ENOXAPARIN 100 MG/ML SYR SUBQ SCH ×2 (09:41→20:49)
[2019-09-30] MEDS: ENOXAPARIN 40 MG/0.4 ML SYR SUBQ SCH (09:42)
[2019-09-30] MEDS: PANTOPRAZOLE 40 MG INJ VIAL IVP SCH ×2 (09:42→20:48)
[2019-09-30] MEDS: HYDROXYCHLOROQUINE 200 MG TAB PO SCH (09:43)
[2019-09-30] MEDS: ASCORBIC ACID 500 MG TAB PO SCH (09:43)
[2019-09-30] MEDS: ZINC SULF 220 MG CAP PO SCH (09:43)
[2019-09-30] MEDS: FUROSEMIDE 20 MG/2 ML VIAL IVP SCH (09:44)
--- NOTE | 2019-09-30 09:51 | NUR ---
MEDICATIONS ADMINISTERED PER ORDER, PT TOLERATED WELL, NO RESPIRATORY DISTRESS NOTED. RASS -4.TEMP 102.3 TYLENOL ADMINISTERED VIA RECTAL SUPPOSITORY AND COOLING MEASURES APPLIED. WILL CONTINUE TO MONITOR.
--- NOTE | 2019-09-30 10:02 | NUR ---
PER RESPIRATORY RATE INCREASED TO 28. WILL CONTINUE TO MONITOR.
[2019-09-30] MEDS: AZITHROMYCIN 250 MG in DEXTROSE 5% 250 ML IV SCH (10:32)
[2019-09-30] MEDS: ACETAMINOPHEN 650 MG SUPP RC PRN ×3 (10:48→23:22)
--- NOTE | 2019-09-30 11:20 | NUR ---
PT REMAINS IN PRONE POSITION NOT IN ANY DISTRESS. WILL CONTINUE TO MONITOR.
[2019-09-30] MEDS: MIDAZOLAM MDV 100 MG in NACL 0.9% 80 ML IV PRN (12:10)
--- NOTE | 2019-09-30 12:28 | NUR ---
PT REPOSITIONED, RECTAL TEMP TAKEN 101.6. PT IN STABLE CONDITION, NO RESPIRATORY DISTRESS NOTED. RASS SCORE OF -4 MAINTAINED. TUBE FEEDING CHANGED AND INFUSING PER ORDER AT [facility] OF 70 ML. WILL CONTINUE TO MONITOR.
--- NOTE | 2019-09-30 13:37 | NUR ---
TUBE FEEDING STOPPED AND FLUSHED WITH WATER IN PREPARATION FOR TURNING OF PT AT AROUND 1430. WILL CONTINUE TO MONITOR.
--- NOTE | 2019-09-30 14:45 | NUR ---
PT REPOSITIONED FROM PRONE TO SUPINE AT THIS TIME 1445. PT TO BE PLACED IN PRONE POSITION AT 2245. TUBE FEEDING RESUMED AT 70MLS. MONTERO CARE DONE, PT CLEANSED AND LINENS CHANGED. SAFETY MEASURES IN PLACE. WILL CONTINUE TO MONITOR.
--- NOTE | 2019-09-30 15:16 | NUR ---
PT OUT OF PRONE POSITION, ETT SECURE WITH A PATENT AIRWAY. ETT SECURED @22 TEETH/GUM. VENT ALARMS ON AND FUNCTIONING. BEDSIDE REQUESTS TO INCREASE VT TO 500ml. WILL CONTINUE TO MONITOR.
[2019-09-30] MEDS ORDERED: NACL 0.9% 500 ML IV SCH (16:50)
--- NOTE | 2019-09-30 16:55 | NUR ---
ORAL CARE GIVEN, PT REPOSITIONED. 500ML BOLUS GIVEN FOR LOW BP. WILL CONTINUE TO MONITOR.
--- NOTE | 2019-09-30 17:18 | NUR ---
RECEIVED CALL FROM PTS SISTER VANDA AND UPDATED HER ON THE PTS CONDITION. REQUESTED FOR DR CROOK TO CALL HER COUSIN BENNIE RUIZ AT [phone]. MESSAGE GIVEN TO DR CROOK WHO VERBALIZED HE WOULD CALL THE COUSIN TO UPDATE HER AND ANSWER HER QUESTIONS.
--- NOTE | 2019-09-30 19:13 | NUR ---
ENDORSED PT TO NIGHT NURSE FOR CONTINUITY OF CARE.
--- NOTE | 2019-09-30 19:30 | NUR ---
RECEIVED PT SEDATED.SR TO ST ON MONITOR.PT SEDATED.ORALLY INTUBATED AC/VC FIO2 60% TV500 RATE 28 PEEP 16; PICC LINE TO EFE INTACT, WITH GOOD BLOOD RETURN TO BOTH PORTS, INFUSING FENTANYL 1MCG/KG/HR(14ML/HR); VERSED 8MG/HR(8ML/HR) AND IVF TKO.TUBE FEEDING/OGT OSMOLITE 1.5 AT 70ML/HR WITH WATER FLUSH ORDERED.NO RESIDUALS NOTED.WITH MONTERO CATHETER TO BSD DRAINING YELLOW URINE WITH SEDIMENTS.WITH SALINE LOCK TO LT FOOT INTACT.FLACC 0.SKIN INTACT.
--- NOTE | 2019-09-30 19:35 | NUR ---
RECEIVED REPORT FROM AM SHIFT. PATIENT SEEN AND ASSESSED. PATIENT IS IN SUPINE POSITION. PATIENT IS INTUBATED WITH ETT SIZE 8.0 AND SECURED WITH ANCHOR-FAST AT 23CM @ LIP. FOUND PATIENT ON VENT SETTINGS: AC/VC 28, 500, +16 60% WITH SPO2 OF 98%. AUSCULTATION REVEALS COARSE/DIMINISHED BILATERAL BREATH SOUNDS. VENT PLUGGED IN RED OUTLET, ALARMS SET AND AUDIBLE, HOB > 30 DEGREES, AND BVM AT BEDSIDE. PATIENT IS IN NO APPARENT RESPIRATORY DISTRESS AT THIS TIME. MDI PRN TX NOT INDICATED AT THIS TIME. WILL CONTINUE TO MONITOR PATIENT.
--- NOTE | 2019-09-30 20:00 | NUR ---
TEMP 101.5.COOLING MEASURES RENDERED,WILL CONTINUE TO MONITOR
--- NOTE | 2019-09-30 23:00 | NUR ---
PT PLACED ON PRONE POSITION ORDERED; RT AND EMT WITH NURSE AT BEDSIDE.
--- NOTE | 2019-09-30 23:22 | NUR ---
RECTAL TEMP 103.5; TYLENOL SUPP ADMINISTERED/RECTAL; COOLING BLANKET APPLIED.
[2019-10-01] VITALS (105 sets, daily range): BP systolic 89–127; BP diastolic 40–84
--- NOTE | 2019-10-01 00:03 | NUR ---
AT APPROXIMATELY 2300, PATIENT WAS PLACED IN PRONE POSITION. HEAD AND HAND WERE POSITIONED. PROCEDURE WAS SUCCESSFULLY COMPLETED WITH NO RESPIRATORY DISTRESS. AIRWAY IS PATENT AND ETT IS SECURED. RNs AND gas leak inspector AT BEDSIDE. WILL CONTINUE TO MONITOR PATIENT.
[2019-10-01] MEDS: MIDAZOLAM MDV 100 MG in NACL 0.9% 80 ML IV PRN ×2 (01:17→15:47)
--- NOTE | 2019-10-01 03:00 | NUR ---
PTS CONDITION REMAINS UNCHANGED.PT STILL ON PRONE POSITION.TEMP AT THIS TIME IS 100.2; FLACC 0
--- NOTE | 2019-10-01 03:10 | NUR ---
REPOSITIONED PATIENT HEAD AND HEAD. NO RESPIRATORY DISTRESS AT THIS MOMENT. AIRWAY IS PATENT.
--- NOTE | 2019-10-01 04:00 | NUR ---
PTS HEAD REPOSITIONED.OGT CAME OFF; ANOTHER OGT INSERTED; PHONE CALL MADE TO DR RICHARD MADE AWARE; CXR WILL BE ORDERED BY
--- NOTE | 2019-10-01 05:43 | NUR ---
PT STILL ON PRONE POSITION.FIO2 50% AT THIS TIME.02SAT 100%.NO SOB NOTED.FLACC 0
[2019-10-01] MEDS: fentaNYL 1 MG in NACL 0.9% 80 ML IV PRN (05:58)
--- NOTE | 2019-10-01 06:10 | NUR ---
DR CROOK IN THE UNIT, MADE AWARE CXR NOT DONE YET; OGT ACCIDENTALLY PULLED OUT EARLIER.PT NOT ON OGT FEEDING AT THIS TIME
--- NOTE | 2019-10-01 06:19 | NUR ---
PATIENT STILL REMAINS ON VENTILATOR SUPPORT. NO CHANGE IN VENT SETTINGS AT THIS TIME. PER PROTOCOL, FiO2 HAS BEEN TITRATED TO 50%. AIRWAY IS PATENT. NO RESPIRATORY DISTRESS NOTED AT THIS MOMENT. WILL CONTINUE TO MONITOR PATIENT.
[2019-10-01 06:48] LABS: BASOPHILS % (AUTO) 0.4 % (0.0-2.0); HEMATOCRIT 32.7 % (36-52); HEMOGLOBIN 10.7 g/dL (12.0-18.0); LYMPHOCYTES # (AUTO) 0.4 K/uL (2.0-11.5); MEAN CORPUSCULAR HEMOGLOBIN 29 pg (27-31); MEAN CORPUSCULAR HGB CONC 33 g/dL (33-37); MEAN CORPUSCULAR VOLUME 89.2 fL (80-94); MONOCYTES # (AUTO) 0.5 K/uL (0.8-1.0); MONOCYTES % (AUTO) 6.6 % (1.7-9.3); NEUTROPHILS # (AUTO) 6.3 K/uL (1.8-7.7); PLATELET COUNT (AUTO) 272 K/uL (140-450); RED BLOOD CELL COUNT(AUTO) 3.66 MIL/uL (4.20-6.10); RED CELL DISTRIBUTION WIDTH 14.7 % (11.6-13.7); WHITE BLOOD COUNT (AUTO) 7.3 K/uL (4.8-10.8)
[2019-10-01 07:03] LABS: ANION GAP 8.3 (8-16); CARBON DIOXIDE 35.6 mmol/L (21-32); CREATININE 2.5 mg/dL (0.6-1.3); POTASSIUM 3.9 mmol/L (3.5-5.1)
--- NOTE | 2019-10-01 07:15 | NUR ---
RECEIVED REPORT FROM NIGHT NURSE. PT IN STABLE CONDITION, RASS -4, NO RESPIRATORY DISTRESS NOTED ON ETT TO VENT. PT IN PRONE POSITION UNTIL 1430, TO BE FLIPPED TO SUPINE. TUBE FEEDING STOPPED, AWAITING VERIFICATION OF PLACEMENT VIA CXR. SKIN INTACT. ON BEDSIDE MONITOR. DROPLET PRECAUTIONS IN PLACE. COOLING BLANKET IN PLACE. SAFETY MEASURES IN PLACE, WILL CONTINUE TO MONITOR.
--- NOTE | 2019-10-01 07:33 | NUR ---
RECEIVED INTUBATED PT WITH A 8.0 ETT SECURED @22 TEETH/GUM ON VENT. SETTINGS AC 28, VT 450, PEEP 16 AND FIO2 TITRATED TO 40%. PT IN THE PRONE POSITION AT THIS TIME TOLERATING VENT SETTINGS WELL, NOT IN ANY DISTRESS. AIRWAY IS PATENT AND SECURE. VENT IS PLUGGED INTO A RED OUTLET WITH ALARMS ON AND FUNCTIONING. WILL CONTINUE TO MONITOR
[2019-10-01 08:56] LABS: MAGNESIUM 3.4 mg/dL (1.8-2.4); PHOSPHORUS 1.9 mg/dL (2.5-4.9)
--- NOTE | 2019-10-01 09:11 | NUR ---
SCREEN FOR LOW BRANDON SCALE AT RISK, CONTINUE TO FOLLOW PRESSURE ULCER PREVENTION INTERVENTIONS. -TURN AND REPOSITION PATIENT Q 2H -ASSESS AND MONITOR SKIN CONDITION DURING POSITION CHANGE -OFFLOAD BILATERAL HEELS BY PLACING PILLOWS UNDER CALVES AT ALL TIMES, UNLESS OTHERWISE CONTRAINDICATED -PRESSURE REDISTRIBUTION BY PLACING PILLOWS AND OFFLOADING SACRALCOCCYX -KEEP SKIN CLEAN AND DRY AT ALL TIMES.
[2019-10-01] MEDS ORDERED: SODIUM PHOS / POTASSIUM PHOS 1 PKT PDR NG SCH (09:30)
[2019-10-01] MEDS: methylPREDNISolone SS 40 MG/ML VIAL IVP SCH ×2 (09:34→21:02)
[2019-10-01] MEDS: PANTOPRAZOLE 40 MG INJ VIAL IVP SCH ×2 (09:34→21:02)
[2019-10-01] MEDS: AZITHROMYCIN 250 MG in DEXTROSE 5% 250 ML IV SCH (09:38)
[2019-10-01] MEDS: ENOXAPARIN 100 MG/ML SYR SUBQ SCH ×2 (09:39→21:03)
--- NOTE | 2019-10-01 09:39 | NUR ---
IV AND SUBQ MEDICATIONS ADMINISTERED PER ORDER, PT TOLERATED WELL. ORAL MEDS TO BE GIVEN THROUGH OG TUBE WERE HELD DUE TO PTS PRONE POSITION AND PENDING XRAY FOR TUBE PLACEMENT. WILL ADMINISTER AFTER PT REPOSITIONED AND PLACEMENT VERIFIED. PT IN STABLE CONDITION. NO RESPIRATORY DISTRESS NOTED. AFEBRILE. WILL CONTINUE TO MONITOR.
--- NOTE | 2019-10-01 11:42 | NUR ---
PT IN PRONE POSITION, NO RESPIRATORY DISTRESS NOTED, VITAL SIGNS WITHIN NORMAL LIMITS, AFEBRILE. FLACC 0, RASS -4. SAFETY MEASURES IN PLACE. WILL CONTINUE TO MONITOR.
--- NOTE | 2019-10-01 13:15 | NUR ---
PT REMAINS IN THE PRONE POSITION, SEDATED NOT IN ANY DISTRESS AT THIS TIME. WILL CONTINUE TO MONITOR.
[2019-10-01] MEDS: MORPHINE SULFATE 100 MG in NACL 0.9% 90 ML IV PRN (13:35)
--- NOTE | 2019-10-01 13:35 | NUR ---
FENTANYL DRIP FINALIZED. PT STARTED ON MORPHINE DRIP, WILL TITRATE NECESSARY. WILL CONTINUE TO MONITOR.
[2019-10-01] MEDS: ZINC SULF 220 MG CAP PO SCH (14:32)
[2019-10-01] MEDS: HYDROXYCHLOROQUINE 200 MG TAB PO SCH (14:32)
[2019-10-01] MEDS: ASCORBIC ACID 500 MG TAB PO SCH (14:33)
--- NOTE | 2019-10-01 15:30 | NUR ---
PT REPOSITIONED TO SUPINE FOR NEXT 8 HS, PT TO BE REPOSITIONED TO PRONE AT 2330. MONTERO CARE AND ORAL CARE GIVEN. PT SUCTIONED. OG TUBE FLUSHED AND TUBE FEEDING RESUMED AT 70MLS/H. PT AFEBRILE, NO DISTRESS NOTED, FLACC 0 RASS -4. WILL CONTINUE TO MONITOR.
--- NOTE | 2019-10-01 15:50 | NUR ---
PT OUT OF PRONE POSITION. ETT REMAINS SECURE WITH A PATENT AIRWAY. WILL CONTINUE TO MONITOR.
--- NOTE | 2019-10-01 17:24 | NUR ---
PT IN STABLE CONDITION, NO DISTRESS NOTED, FLACC 0, RASS -4, AFEBRILE. SAFETY MEASURES IN PLACE. WILL CONTINUE TO MONITOR.
--- NOTE | 2019-10-01 17:33 | NUR ---
PT REMAINS ON DOCUMENTED VENT SETTINGS. ETT SECURE WITH A PATENT AIRWAY. PT IS NOT IN ANY DISTRESS AT THIS TIME. VENT ALARMS ON AND FUNCTIONING.
--- NOTE | 2019-10-01 19:19 | NUR ---
PT ENDORSED TO TIFFANIE FOR CONTINUITY OF CARE.
--- NOTE | 2019-10-01 19:30 | NUR ---
RECEIVED PT FROM BRANDY RN, RESTING IN BED FLACC 0, SEDATED WITH RASS -4 ACHIEVED, PER MD ORDERS. DRY WEIGHT 144 KG. PUPILS 2MM, PERRL, BRISK. ETT TO VENT WITH SETTINGS FOLLOWS: AC/VC: FIO2 35%, TV 500, RR 28, P 18. LUNG SOUNDS COARSE. OGT IN PLACE TO CONTINUOUS FEEDING. ZERO RESIDUAL NOTED. + PLACEMENT VERIFIED VIA AIR BOLUS. OSMOLITE 1.5 RUNNING @ 70CC/HR, WITH 100 ML FWF Q6H. BOWEL SOUNDS ACTIVE X4. NO ABD DISTENTION/TENDERNESS NOTED. EFE PICC INFUSING VERSED 9 ML/HR, MORPHINE 1MG/HR, NS 10 ML/HR TKVO. MONTERO CATH IN PLACE DRAINING CLEAR, YELLOW URINE TO GRAVITY. PEDAL PULSES PALPABLE WITH PRESSURE AREAS OFFLOADED. BED LOW AND LOCKED WITH SAFETY PRECAUTIONS IN PLACE. ALL EQUIPMENT FUNCTIONING PROPERLY WITH ALARMS IN PLACE.
--- NOTE | 2019-10-01 23:30 | NUR ---
ATTEMPTED TO PLACE PT IN PRONE POSITION WITH TEAM OF 5, INCLUDING RESPIRATORY. PT UNABLE TO TOLERATE THIS POSITION. ELEVATED HR, COUGHING, AND ATTEMPTING TO PUSH HIMSELF UP FROM BED. RESIDENT MADE AWARE. REPOSITIONED PT TO SUPINE.
--- NOTE | 2019-10-01 23:30 | NUR ---
PATIENT PLACED IN PRONE POSITION. PT DID NOT TOLERATE PRONING. HEART RATE INCREASED, PT BEGAN TO COUGH PERSISTENTLY. SUCTIONED LARGE AMOUNT OF FROTHY, RED/BROWN SECRETIONS. PT TRYING TO PUSH HIMSELF UP FROM BED. RETURNED PT TO SUPINE POSITION. PT APPEARS TO BE MORE COMFORTABLE. WILL CONTINUE TO MONITOR.
[2019-10-02] VITALS (102 sets, daily range): BP systolic 90–135; BP diastolic 40–84
--- NOTE | 2019-10-02 02:00 | NUR ---
REPOSITIONED PT WITH PRESSURE AREAS OFFLOADED. FLACC 0. SAFETY PRECAUTIONS REMAIN IN PLACE. BED LOW AND LOCKED. WILL CONT TO MONITOR
--- NOTE | 2019-10-02 04:00 | NUR ---
REPOSITIONED PT WITH PRESSURE AREAS OFFLOADED. SUCTIONED WITH SCANT BLOOD-TINGED SECRETIONS. FLACC 0. SAFETY PRECAUTIONS IN PLACE. BED LOW AND LOCKED. WILL CONT TO MONITOR.
[2019-10-02] MEDS: MIDAZOLAM MDV 100 MG in NACL 0.9% 80 ML IV PRN (05:59)
[2019-10-02 06:22] LABS: BASOPHILS % (AUTO) 0.2 % (0.0-2.0); HEMATOCRIT 31.9 % (36-52); HEMOGLOBIN 10.8 g/dL (12.0-18.0); LYMPHOCYTES # (AUTO) 0.4 K/uL (2.0-11.5); LYMPHOCYTES % (AUTO) 5.1 % (20.5-51.1); MEAN CORPUSCULAR HEMOGLOBIN 31 pg (27-31); MEAN CORPUSCULAR HGB CONC 34 g/dL (33-37); MEAN CORPUSCULAR VOLUME 91.6 fL (80-94); MONOCYTES # (AUTO) 0.8 K/uL (0.8-1.0); MONOCYTES % (AUTO) 9.9 % (1.7-9.3); NEUTROPHILS # (AUTO) 7.1 K/uL (1.8-7.7); NEUTROPHILS % (AUTO) 84.8 % (42.2-75.2); PLATELET COUNT (AUTO) 291 K/uL (140-450); RED BLOOD CELL COUNT(AUTO) 3.48 MIL/uL (4.20-6.10); RED CELL DISTRIBUTION WIDTH 14.7 % (11.6-13.7); WHITE BLOOD COUNT (AUTO) 8.4 K/uL (4.8-10.8)
[2019-10-02 06:27] LABS: ANION GAP 10.8 (8-16); CARBON DIOXIDE 34.9 mmol/L (21-32); CREATININE 1.9 mg/dL (0.6-1.3); POTASSIUM 3.7 mmol/L (3.5-5.1)
[2019-10-02 06:35] LABS: MAGNESIUM 3.5 mg/dL (1.8-2.4); PHOSPHORUS 1.8 mg/dL (2.5-4.9)
--- NOTE | 2019-10-02 06:40 | NUR ---
RECEIVED PT ON SETTINGS OF AC/VC 28,500,+16,35% VENT IS PLUGGED INTO RED OUTLET, ALARMS ARE ON AND FUNCTIONING, AMBU BAG AT BEDSIDE. PT SHOWS NO SIGN OF DISTRESS AT THIS TIME. WILL CONTINUE TO MONITOR.
--- NOTE | 2019-10-02 07:15 | NUR ---
GAVE REPORT TO DAYSHIFT RN FOR CONTINUITY OF CARE.
--- NOTE | 2019-10-02 07:35 | NUR ---
BEDSIDE REPORT RECEIVED FROM CURB HOP NURSE, PT SEDATED TO RASS -4, WITH ETT TO VENT 8.0F, 22 AT TEETH, ACVC FIO2 35%, TV 500, PEEP 16, RR 28, VITALS STABLE, RESP UNLABORED, BILAT CHEST RISE AND FALL, SKIN WARM DRY COLOR WNL, SR ON MONITOR, EFE PICCLINE, DOUBLE LUMEN, SITE WNL, OGT IN PLACE, FEEDING ON HOLD NOW, WILL START, GOAL 70ML/HR, [id number]/6HR ABD SOFT NON DISTNEDED, MONTERO IN PLACE, DRAINING TO GRAVITY, GEN EDEMA NOTED ON ALL EXT, RECTAL TEMP PROBE IN PLACE, CURRENT TEMP 100.0. SKIN INTACT, POC REVIEWED, ALL SAFETY MEASURES IN PLACE, CURRENT DRIPS: VERSED 13MG/HR (13ML/HR), MORPHINE 2MG/HR (2ML/HR), DRY WT 140KG.
--- NOTE | 2019-10-02 09:15 | NUR ---
SX: SMALL/THIN BLOOD TINGED SECRETIONS
[2019-10-02] MEDS: PANTOPRAZOLE 40 MG INJ VIAL IVP SCH ×2 (09:46→20:48)
[2019-10-02] MEDS: ENOXAPARIN 100 MG/ML SYR SUBQ SCH ×2 (09:46→20:52)
[2019-10-02] MEDS: AZITHROMYCIN 250 MG in DEXTROSE 5% 250 ML IV SCH (09:46)
[2019-10-02] MEDS: methylPREDNISolone SS 40 MG/ML VIAL IVP SCH ×2 (09:46→20:48)
[2019-10-02] MEDS: ZINC SULF 220 MG CAP PO SCH (09:50)
[2019-10-02] MEDS: ASCORBIC ACID 500 MG TAB PO SCH (09:50)
[2019-10-02] MEDS: HYDROXYCHLOROQUINE 200 MG TAB PO SCH (09:50)
--- NOTE | 2019-10-02 10:00 | NUR ---
AM CARE DONE MONTERO CARE, HCG WIPE, PICC LINE DRESSING CHANGED.
--- NOTE | 2019-10-02 10:27 | NUR ---
DR HOFFMANN AT BEDSIDE VENT SETTING DISCUSSED WITH RT BUTLER, CXR ORDERED
--- NOTE | 2019-10-02 10:40 | NUR ---
CHANGED PT SET PEEP TO +[address] HOFFMANN, VERBAL ORDER.
--- NOTE | 2019-10-02 10:40 | NUR ---
PT IS TOLERATING AND IS IN NO DISTRESS.
[2019-10-02] MEDS: PROPOFOL 1000 MG/100 ML PREMIX 100 ML IV PRN ×4 (12:15→22:54)
[2019-10-02] MEDS: MORPHINE SULFATE 100 MG in NACL 0.9% 90 ML IV PRN ×2 (12:37→23:11)
[2019-10-02] MEDS: ACETAMINOPHEN 325 MG TAB PO PRN (13:10)
--- NOTE | 2019-10-02 13:15 | NUR ---
TYLENOL GIVEN FOR FEVER 101.0
[2019-10-02] MEDS ORDERED: SODIUM PHOS / POTASSIUM PHOS 1 PKT PDR NG SCH (15:00)
--- NOTE | 2019-10-02 16:57 | NUR ---
LEFT PT ON DOCUMENTED SETTINGS. VENT CHECK IS DONE. PT SHOWS NO SIGN OF DISTRESS AT THIS TIME. VENT IS PLUGGED INTO RED OUTLET, ALARMS ARE ON AND FUNCTIONING, AMBU BAG AT BEDSIDE. ETT IS SECURED AND INTACT.
--- NOTE | 2019-10-02 18:39 | NUR ---
DR ABRAHAM AT BEDSIDE
--- NOTE | 2019-10-02 19:45 | NUR ---
PT RECEIVED FROM AM NURSE, DRY WEIGHT 140 KG RASS -4, PT IS ETT TO VENT FIO2 35 VT 500 RR 28 PEEP 10, PUCC LINE EFE INFUSING PROPOFOL 30 MCG/KG/MIN, MORPHINE 10MG/HR, PULSES PALPABLE UPPER AND LOWER EXTREMITIES BILATERAL, LUNGS SOUNDS COARSE, S1 AND S2 HEART SOUNDS HEARD, PT HAS MONTERO CATHETER IN PLACE, DRAINING YELLOW URINE WITH SEDIMENT PRESENT, BOWEL SOUNDS PRESENT, PT ON COOLING BLANKET WITH RECTAL TEMP OF 99.0F, HOB 30 DEGREES PER PROTOCOL, SAFETY PROTOCOLS IN PLACE WITH BED IN LOWEST POSITION WILL CONTINUE TO MONITOR PT
--- NOTE | 2019-10-02 19:54 | NUR ---
RECEIVED REPORT FROM AM SHIFT. PATIENT SEEN AND ASSESSED. PATIENT IS IN SUPINE POSITION. PATIENT IS INTUBATED WITH ETT SIZE 8.0 AND SECURED WITH ANCHOR-FAST AT 23CM @ LIP. FOUND PATIENT ON VENT SETTINGS: AC/VC 28, 500, +10 35% WITH SPO2 OF 96%. AUSCULTATION REVEALS COARSE/DIMINISHED BILATERAL BREATH SOUNDS. SUCTION SCANT AMOUNT OF FRANK THICK SECRETIONS FROM ETT. VENT PLUGGED IN RED OUTLET, ALARMS SET AND AUDIBLE, HOB > 30 DEGREES, AND BVM AT BEDSIDE. PATIENT IS IN NO APPARENT RESPIRATORY DISTRESS AT THIS TIME. MDI PRN TX NOT INDICATED AT THIS TIME. WILL CONTINUE TO MONITOR PATIENT.
--- NOTE | 2019-10-02 20:48 | NUR ---
PROTONIX AND SOLUMEDROL GIVEN IVP. LOVENOX GIVEN SUBQ.
--- NOTE | 2019-10-02 20:54 | NUR ---
NEW VIAL PROPAFOL ON CONTINUOUS DRIP.
--- NOTE | 2019-10-02 20:58 | NUR ---
AT APPROXIMATELY 2030, PATIENT WAS SUCCESSFULLY PLACED IN PRONE POSITION ORDERED BY DR. ABRAHAM. SPO2 IS 95%. PATIENT IS IN NO RESPIRATORY DISTRESS AT THIS MOMENT. AIRWAY IS PATENT AND TUBE IS SECURED. RNs AT BEDSIDE. WILL CONTINUE TO MONITOR PATIENT.
--- NOTE | 2019-10-02 22:00 | NUR ---
PT DISPLAYS NO SIGNS OF DISTRESS WILL CONTINUE TO MONITOR PT
[2019-10-03] VITALS (98 sets, daily range): BP systolic 83–108; BP diastolic 36–67
--- NOTE | 2019-10-03 01:01 | NUR ---
PT RASS DECREASED TO RASS -1 PT BREIFLY AWAKENS AND TRYING TO MOVE AROUND INCREASED PROPOFOL TO 35MCG/KG/MIN
--- NOTE | 2019-10-03 01:32 | NUR ---
PATIENT HEAD AND HAND WERE REPOSITIONED. PATIENT IN NO RESPIRATORY DISTRESS AT THIS TIME. SPO2 96%. AIRWAY PATENT AND ETT SECURED. LEVI SHIN AT BEDSIDE. WILL CONTINUE TO MONITOR PATIENT.
--- NOTE | 2019-10-03 02:02 | NUR ---
JANENE SHEPPARD AND RUNNING. PT TOLERATING WELL.
[2019-10-03] MEDS: PROPOFOL 1000 MG/100 ML PREMIX 100 ML IV PRN ×7 (02:25→22:12)
--- NOTE | 2019-10-03 02:25 | NUR ---
NEW VIAL OF PROPAFOL HUNG CONTINUOUS DRIP. PT TOLERATING WELL.
--- NOTE | 2019-10-03 05:45 | NUR ---
NEW VIAL PROPAFOL HUNG FOR CONTINUOUS DRIP.
--- NOTE | 2019-10-03 06:14 | NUR ---
PATIENT STILL REMAINS ON VENTILATOR SUPPORT. NO CHANGE IN VENT SETTINGS AT THIS TIME. AIRWAY IS PATENT. NO RESPIRATORY DISTRESS NOTED AT THIS MOMENT. WILL CONTINUE TO MONITOR PATIENT.
[2019-10-03 06:29] LABS: BASOPHILS # (AUTO) 0.1 K/uL (0.00-0.22); BASOPHILS % (AUTO) 1.3 % (0.0-2.0); EOSINOPHILS # (AUTO) 0.1 K/uL (0-0.4); EOSINOPHILS % (AUTO) 2.2 % (0.0-4.0); HEMATOCRIT 29.9 % (36-52); HEMOGLOBIN 10.5 g/dL (12.0-18.0); LYMPHOCYTES # (AUTO) 0.5 K/uL (2.0-11.5); LYMPHOCYTES % (AUTO) 6.9 % (20.5-51.1); MEAN CORPUSCULAR HEMOGLOBIN 33 pg (27-31); MEAN CORPUSCULAR HGB CONC 35 g/dL (33-37); MEAN CORPUSCULAR VOLUME 94.3 fL (80-94); MONOCYTES # (AUTO) 0.3 K/uL (0.8-1.0); MONOCYTES % (AUTO) 4.3 % (1.7-9.3); NEUTROPHILS # (AUTO) 5.6 K/uL (1.8-7.7); NEUTROPHILS % (AUTO) 85.3 % (42.2-75.2); PLATELET COUNT (AUTO) 300 K/uL (140-450); RED BLOOD CELL COUNT(AUTO) 3.17 MIL/uL (4.20-6.10); RED CELL DISTRIBUTION WIDTH 14.8 % (11.6-13.7); WHITE BLOOD COUNT (AUTO) 6.6 K/uL (4.8-10.8)
[2019-10-03 06:54] LABS: PHOSPHORUS 3.2 mg/dL (2.5-4.9)
[2019-10-03 07:02] LABS: ANION GAP 10.1 (8-16); CARBON DIOXIDE 33.9 mmol/L (21-32); CREATININE 1.6 mg/dL (0.6-1.3)
--- NOTE | 2019-10-03 07:30 | NUR ---
BEDSIDE REPORT RECEIVED FROM ART OBJECTS REPAIRER NURSE, PT IN PRONE POSITION, SEDATED TO RASS -4, WITH ETT TO VENT 8.0F, 23 AT TEETH, ACVC FIO2 35%, TV 500, PEEP 10, RR 28, VITALS STABLE, RESP UNLABORED, SKIN WARM DRY COLOR WNL, SR ON MONITOR, EFE PICCLINE, DOUBLE LUMEN, SITE WNL, OGT IN PLACE, FEEDING ONGOING AT 60ML/HR, MONTERO IN PLACE, DRIANING TO GRAVITY, GEN EDEMA NOTED ON ALL EXT, SKIN INTACT, COOLING BLANKET ON PT, POC REVIEWED, ALL SAFETY MEASURES IN PLACE, CURRENT DRIPS: MORPHINE AT 10MG/HR (10ML/HR), PROPOFOL 135MCG/KG/MIN (29.4ML/HR), DRY WT 140KG.
--- NOTE | 2019-10-03 08:40 | NUR ---
WITH RT FAVIAN, HEAD AND NECK POSITION AND ARM POSITION CHANGED
[2019-10-03] MEDS: PANTOPRAZOLE 40 MG INJ VIAL IVP SCH ×2 (09:43→21:23)
[2019-10-03] MEDS: ENOXAPARIN 100 MG/ML SYR SUBQ SCH ×2 (09:45→21:26)
[2019-10-03] MEDS: ZINC SULF 220 MG CAP PO SCH (09:45)
[2019-10-03] MEDS: ASCORBIC ACID 500 MG TAB PO SCH (09:45)
[2019-10-03] MEDS: methylPREDNISolone SS 40 MG/ML VIAL IVP SCH ×2 (10:00→21:23)
[2019-10-03] MEDS: MORPHINE SULFATE 100 MG in NACL 0.9% 90 ML IV PRN ×2 (10:01→20:55)
--- NOTE | 2019-10-03 14:33 | NUR ---
10/03/19 RD FOLLOW UP COMPLETED PLEASE REFER TO NUTRITION ASSESSMENT UNDER CARE ACTIVITY FOR ESTIMATED NUTRITIONAL NEEDS. 1. RD RECOMMENDED SWITCHING FORMULA TO VITAL HIGH PROTEIN @ 80 ML/HR GOAL, START AT 30 ML/HR AND INCREASE BY 10 ML/HR -VITAL HP AT 80 ML/HR WILL PROVIDE 1920 CALORIES AND 168 GM OF PROTEIN WHICH MEETS 100% OF ESTIMATED NEEDS 2. CONTINUE FREE WATER FLUSH OF 100 ML Q6H PER MD 3. CONTINUE VITAMIN C AND ZINC FOR SKIN INTEGRITY 4. IF PATIENT IS EXTUBATED, CONSIDER ORDERING SWALLOW EVALUATION 5. RD TO FOLLOW-UP 2-3 DAYS, HIGH RISK DEB YUN RD
--- NOTE | 2019-10-03 14:45 | NUR ---
PT TURNED BACK TO SUPINE WITHOUT PROBLEM, VITALS STABLE.
--- NOTE | 2019-10-03 16:00 | NUR ---
PT INTERMITTENTLY AROUSES WITH CARE, ARM MOVEMENTS TOWARD FACE, PT REMAINS ON PROPOFOL AND MORPHINE, DR BUSTAMANTE NOTIFIED, PT PLACED BACK ON SOFT WRIST RESTRAINTS.
--- NOTE | 2019-10-03 17:35 | NUR ---
LATE ENTRY - PT ET TUBE WAS AT 20CM ADVANCED TO 23CM AT LIP PER PREV. MARKER
--- NOTE | 2019-10-03 19:00 | NUR ---
received pt from day shift on documented setting. vent plugged into red outlet. alarms audible and working. bmv at bedside. ett secured and intact. sx scant amount of thin reddish secretions. pt is in no distress. will cont to monitor
--- NOTE | 2019-10-03 19:20 | NUR ---
RECEIVED PT FROM BRANDY RN PT IS SEDATED RASS -4 DRY WEIGHT 140 KG, ETT TO VENT FIO2 35 VT 500 RR 28 PEEP 10, EFE PICC LINE INFUSING PROPOFOL 45 MCG/KG/MIN AND MORPHINE 10MG/HR, MONTERO CATHETER IN PLACE DRAING STRAW COLORED URINE WITH SEDIMENTATION PRESENT, PT HAS RECTAL THERMOMETER ATTACHED TO COOLING BLANKET SET TO MONITOR TEMP. PT HAS HYPOACTIVE BOWEL SOUNDS, COARSE LUNG SOUNDS, S1 AND S2 HEART SOUNDS HEARD, PT EYES PERRL 3 MM BRISK, PULSES PALPABLE UPPER AND LOWER EXTREMITIES. HOB 30 DEGREES PER PROTOCOL, SAFTERY PROTOCOLS IN PLACE WITH BED IN LOWEST SETTING, WILL CONTINUE TO MONITOR PT
[2019-10-03] MEDS ORDERED: DEXTROSE 50% 50 ML SYR IVP PRN (19:25)
--- NOTE | 2019-10-03 21:15 | NUR ---
PT MEDS GIVEN PT REMAINS RASS -4 AND WILL CONTINUE TO MONITOR PT
[2019-10-03] MEDS: BLOOD GLUCOSE MONITORING 1 DEV DEV FS SCH (21:58)
[2019-10-03] MEDS ORDERED: CRUSHER, PILL MC ONE (23:37)
[2019-10-04] VITALS (105 sets, daily range): BP systolic 95–139; BP diastolic 38–86
--- NOTE | 2019-10-04 00:45 | NUR ---
pt placed in prone position head tilt to the right. ett remained at documented settings. patent airway. will cont to monitor
[2019-10-04] MEDS: PROPOFOL 1000 MG/100 ML PREMIX 100 ML IV PRN ×10 (00:50→23:18)
--- NOTE | 2019-10-04 00:55 | NUR ---
PT REPOSITIONED TP PRONE, WHILE PREPARING TO CHANGE PT POSTION, PRESSURE INJURY ON LEFT CHEEK 1KNW2FK FOUND DRESSING PUT IN PLACE TO COVER WOUND AND HELP OFFLOAD PRESSURE SITE, DTI FOUND RIGHT FOOT 1ST DIGIT, SITE ALLEVIATED OF PRESSURE, SKIN TEAR MEDIAL PART OF NOSE BETWEEN NOSTRILS, DRESSING PUT TO HELP ALLEVIATE PRESSURE OFF OF AREA AND PROTECT SKIN, WILL CONTINUE TO MONITOR PT
--- NOTE | 2019-10-04 05:38 | NUR ---
PT REMAINS IN PRONE POSITION. HEAD TILT TO THE RIGHT AND IS IN A SWIMMING POSITION. ETT REMAINS SECURED AND PT HAS A PATENT AIRWAY. ALARMS SET. PT IS IN NO DISTRESS. WILL CONT TO MONITOR
[2019-10-04 06:13] LABS: BASOPHILS # (AUTO) 0.1 K/uL (0.00-0.22); BASOPHILS % (AUTO) 2.3 % (0.0-2.0); EOSINOPHILS # (AUTO) 0.1 K/uL (0-0.4); EOSINOPHILS % (AUTO) 1.6 % (0.0-4.0); HEMATOCRIT 28.9 % (36-52); HEMOGLOBIN 10.8 g/dL (12.0-18.0); LYMPHOCYTES # (AUTO) 0.5 K/uL (2.0-11.5); LYMPHOCYTES % (AUTO) 7.7 % (20.5-51.1); MEAN CORPUSCULAR HEMOGLOBIN 37 pg (27-31); MEAN CORPUSCULAR HGB CONC 37 g/dL (33-37); MEAN CORPUSCULAR VOLUME 98.2 fL (80-94); MONOCYTES # (AUTO) 0.3 K/uL (0.8-1.0); MONOCYTES % (AUTO) 5.5 % (1.7-9.3); NEUTROPHILS % (AUTO) 82.9 % (42.2-75.2); PLATELET COUNT (AUTO) 358 K/uL (140-450); RED BLOOD CELL COUNT(AUTO) 2.94 MIL/uL (4.20-6.10); RED CELL DISTRIBUTION WIDTH 15.2 % (11.6-13.7)
--- NOTE | 2019-10-04 06:31 | NUR ---
UPDATED DR CROOK ABOUT PT SEDATION. PT CURRENTLY @ 11 MG/HR MORPHINE DRIP, AND PROPOFOL @ 45 MCG/KG/MIN, MD AWARE. RASS - 4. PT MOVING IN BED SPORADICALLY THROUGHOUT NIGHT. MD STATED TO TRY TO WEAN TODAY IF TOLERABLE. NO OTHER ACUTE CHANGES NOTED.
[2019-10-04 06:51] LABS: ANION GAP 13.1 (8-16); CARBON DIOXIDE 31.7 mmol/L (21-32); CREATININE 1.6 mg/dL (0.6-1.3); POTASSIUM 4.8 mmol/L (3.5-5.1)
[2019-10-04] MEDS: MORPHINE SULFATE 100 MG in NACL 0.9% 90 ML IV PRN ×2 (06:59→18:00)
--- NOTE | 2019-10-04 07:12 | NUR ---
RECEIVED PT ON DOCUMENTED SETTINGS. PT IS CURRENTLY IN PRONE POSITION, HEAD IS FACING RIGHT SIDE. SX: SMALL FRANK SECRETIONS. VENT IS PLUGGED INTO RED OUTLET, ALARMS ARE ON AND FUNCTIONING, AMBU BAG AT BEDSIDE. PT SHOWS NO SIGN OF DISTRESS AT THIS TIME. ETT IS SECURED AND INTACT, WILL CONTINUE TO MONITOR.
[2019-10-04] MEDS: BLOOD GLUCOSE MONITORING 1 DEV DEV FS SCH ×4 (07:22→20:43)
--- NOTE | 2019-10-04 07:30 | NUR ---
REPORT GIVEN TO BRANDY RN NO SINGS OF DISTRESS NOTED
--- NOTE | 2019-10-04 07:30 | NUR ---
RECEIVED PT FROM PM SHIFT RN PT IS SEDATED WITH PROPOFOL 50 MCG/KG/MIN BASED ON DRY WEIGHT 140 KG. RASS -4. PT ON PRONE POSITION. ETT TO VENT FIO2 35 VT 500 RR 28 PEEP 10.COARSE LUNG SOUNDS. EFE PICC LINE INFUSING PROPOFOL AND MORPHINE 11MG/HR, PT HAS RECTAL THERMOMETER IN PLACE SHOWS TEMP 98.4F. PT ALSO HAS OG TUBE IN PLACE WITH VITAL AF AT 70 CC/HR WITH WATER FLUSH 100 CC Q 6 HRS. PULSES PALPABLE UPPER AND LOWER EXTREMITIES. SKIN NON INTACT ( SEE WOUND ASSESSMENT ) HOB 30 DEGREES PER PROTOCOL, SAFETY PROTOCOLS IN PLACE WITH BED IN LOWEST SETTING, WILL CONTINUE TO MONITOR PT.
[2019-10-04 07:34] LABS: MAGNESIUM 3.8 mg/dL (1.8-2.4); PHOSPHORUS 5.1 mg/dL (2.5-4.9)
[2019-10-04] MEDS: PANTOPRAZOLE 40 MG INJ VIAL IVP SCH ×2 (08:37→20:42)
[2019-10-04] MEDS: ASCORBIC ACID 500 MG TAB PO SCH (08:37)
[2019-10-04] MEDS: ZINC SULF 220 MG CAP PO SCH (08:38)
[2019-10-04] MEDS: methylPREDNISolone SS 40 MG/ML VIAL IVP SCH ×2 (08:38→20:42)
[2019-10-04] MEDS: ENOXAPARIN 100 MG/ML SYR SUBQ SCH ×2 (08:42→20:48)
--- NOTE | 2019-10-04 08:50 | NUR ---
DUE MEDS GIVEN, RESIDUAL CHECKED 10 CC, RETURNED IT BACK.
--- NOTE | 2019-10-04 10:00 | NUR ---
NOTIFIED RESIDENT OFFICE PT'S HR INCREASED 110S.
[2019-10-04] MEDS ORDERED: LORazepam 2 MG/ML VIAL IVP SCH (11:00)
--- NOTE | 2019-10-04 11:18 | NUR ---
PT AGITATED AT THIS TIME, REORIENTED PT, AND GAVE ATIVAN 2 MG ORDERED.
[2019-10-04] MEDS: INSULIN LISPRO SLIDING SCALE 100 UNITS/ML VIAL SUBQ PRN (11:30)
--- NOTE | 2019-10-04 12:11 | NUR ---
RECEIVED PHONE CALL FROM DR. HOFFMANN, HOLD TUBE FEEDING AND ONCE CHANGE PT TO SUPINE POSITION THIS AFTERNOON , THEN ADVANCE OG TUBE AND RESTART TUBE FEEDING. CARRIED OUT.
--- NOTE | 2019-10-04 12:13 | NUR ---
TITRATED PT SET PEEP TO +5. PER DR. HOFFMANN, VERBAL ORDER. PT IS TOLERATING WELL AND SPO2 READS 99% WILL CONTINUE TO MONITOR.
--- NOTE | 2019-10-04 12:30 | NUR ---
DR. CROOK MADE AWARE PT BEDSIDE MONITOR SHOWS HR ST 110S.
--- NOTE | 2019-10-04 12:30 | NUR ---
LATE ENTRY, CONFIRMED X-RAY REPORT WITH DR. HOFFMANN AND RESIDENT. OG TUBE SHOULD BE PULL OUT A LITTLE BIT INSTEAD OF GET ADVANCED.
--- NOTE | 2019-10-04 15:55 | NUR ---
PLACED PT IN SUPINE AT THIS TIME. SX: LARGE AMOUNT OF FRANK SECRETIONS ANCHOR FAST CHANGED. ETT IS SECURED AND INTACT. PT SHOWS NO SIGN OF DISTRESS. WILL CONTINUE TO MONITOR.
--- NOTE | 2019-10-04 16:50 | NUR ---
PLACED PT ON CPAP TRIAL 10/ 35% AND IS ON DOCUMENTED SETTINGS. PT IS TOLERATING WELL AND SHOWS NO DISTRESS. VENT IS PLUGGED INTO RED OUTLET, ALARMS ARE ON AND FUNCTIONING, AMBU BAG AT BEDSIDE.
--- NOTE | 2019-10-04 17:00 | NUR ---
STARTED TO PLACE PT IN SUPINE POSITION WITH EMT, RN AND RT AT 1555, STARTED SEDATION VACATION AT 1645. RT AT BEDSIDE. REORIENTED PT ENVIRONMENT. TOLD PT DO NOT PULL OUT TUBES.
--- NOTE | 2019-10-04 17:01 | NUR ---
PULLED OG TUBE OUT ABOUT 3-4 CM, CHECKED PLACEMENT , HEARD AIR PASS WATER. RESTARTED TUBE FEEDING .
[2019-10-04] MEDS: ACETAMINOPHEN 325 MG TAB PO PRN (17:40)
--- NOTE | 2019-10-04 18:00 | NUR ---
PT IS OFF CPAP AND BACK ON DOCUMENTED SETTINGS. ETT SECURED AND INTACT. PT SHOWS NO SIGN OF DISTRESS.
--- NOTE | 2019-10-04 18:35 | NUR ---
PT TEMP 100.4 AT 1740, TYLENOL GIVEN ORDERED. PT TEMP AT THIS TIME 98.0F.
--- NOTE | 2019-10-04 19:20 | NUR ---
ENDORSED PT TO PM SHIFT RN.
--- NOTE | 2019-10-04 19:30 | NUR ---
REVEIVED PT FROM DAY SHIFT RN, PT IS SEDATD RASS -4 DRY WEIGHT 140KG, PT HAS EFE PICC WITH PROPOFOL INFUSING 50MCG/KG/MIN, MORPHINE DRIP 10 MG/HR, ETT TO VENT FI02 35 VT 500 RR 28 PEEP 5, PT HAS OGT TO FEEDING VITAL AF 80ML/HR 100ML WATER FLUSH Q6, PT HAS MONTERO CATHETER IN PLACE DRAINING STRAW COLORED URINE WITH SEDIMENTATION, PT HAS HYPOACTIVE BOWEL SOUNDS, WITH COARSE LUNGS SOUNDS BILATERAL, PULSES PALPABLE UPPER AND LOWER EXTREMITIES, PT HAS DTI RIGHT FOOT 1ST DIGIT, SKIN TEAR UNDER NOSE, PRESSURE INJURY TO RIGHT CHEEK, EYES PERRL BRISK 3 MM, HOB 30 DEGREES PER PROTOCOL, WITH SAFETY PROTOCOLS IN PLACE, BED IS IN LOWEST POSTION WILL CONTINUE TO MONITOR PT. Addendum: 10/05/19 at 0727 by Marco Bishop RN AUSCULTATED TUBE PLACEMENT, SOUNDS IN CORRECT PLACE, NO RESIDUALS FOUND AT THIS TIME
--- NOTE | 2019-10-04 21:15 | NUR ---
PT MEDS GIVEN AND PT TOLERATING MEDICATIONS GIVEN
[2019-10-04] MEDS ORDERED: MORPHINE SULFATE 100 MG in NACL 0.9% 90 ML IV PRN (22:10)
--- NOTE | 2019-10-04 22:10 | NUR ---
SPOKE TO DR. ABRAHAM REGARDING PT SEDATION, PT WAS AGITATED, MOVING IN BED WHILE PRONE, UNABLE TO REACH TARGET RASS -4. MD STATED HE WOULD INCREASE MAX TO 12 MG/HR TO KEEP RASS-4. NO OTHER ACUTE CHANGES NOTED. WILL CONTINUE TO OBSERVE.
[2019-10-05] VITALS (51 sets, daily range): BP systolic 91–140; BP diastolic 44–90
--- NOTE | 2019-10-05 00:10 | NUR ---
PT PLACED IN PRONE POSITION FOR NEXT 16 HOURS, PT VITALS STABLE, WILL CONTINUE TO MONITOR PT FOR SIGNS OF DISTRESS.
[2019-10-05] MEDS: LORazepam 2 MG/ML VIAL IVP PRN ×3 (00:54→22:24)
--- NOTE | 2019-10-05 01:00 | NUR ---
PT DISPLAYING SIGNS OF AGITATION, TRYING TO MOVE HEAD, 2MG DOSE ATIVAN GIVEN TO HELP RELAX PT DOSE SEEMED EFFECTIVE PT HAS RELAXED AND NO LONGER TRYING TO MOVE HEAD
[2019-10-05] MEDS: PROPOFOL 1000 MG/100 ML PREMIX 100 ML IV PRN ×4 (01:49→09:13)
--- NOTE | 2019-10-05 03:13 | NUR ---
PT VITAL SIGNS STABLE, NO SIGNS OF DISTRESS OBSERVED, WILL CONTINUE TO MONITOR PT
--- NOTE | 2019-10-05 04:55 | NUR ---
PATIENT APPEARS STABLE. IN PRONE POSITIONING AND TOLERATING WELL. INCREASED SATURATIONS NOTED. ON CHARTED SETTINGS. WILL CONTINUE TO MONITOR.
--- NOTE | 2019-10-05 05:49 | NUR ---
HUNG NEW TUBE FEDEDING FOR DAY SHIFT, FEEDING REMAINS OFF WHILE PT PRONE, PT VITALS STABLE PT. HAS BEEN MOVING LIMBS OCCASIONALLY FOR LAST 15 MINUTES WILL CONTINUE CLOSE MONITORING OF PT FOR SIGNS OF DISTRESS
[2019-10-05 06:29] LABS: BASOPHILS # (AUTO) 0.1 K/uL (0.00-0.22); BASOPHILS % (AUTO) 1.2 % (0.0-2.0); EOSINOPHILS % (AUTO) 0.8 % (0.0-4.0); HEMATOCRIT 28.5 % (36-52); HEMOGLOBIN 10.4 g/dL (12.0-18.0); LYMPHOCYTES # (AUTO) 0.7 K/uL (2.0-11.5); LYMPHOCYTES % (AUTO) 10.7 % (20.5-51.1); MEAN CORPUSCULAR HEMOGLOBIN 36 pg (27-31); MEAN CORPUSCULAR HGB CONC 37 g/dL (33-37); MEAN CORPUSCULAR VOLUME 97.3 fL (80-94); MONOCYTES # (AUTO) 0.3 K/uL (0.8-1.0); MONOCYTES % (AUTO) 4.7 % (1.7-9.3); NEUTROPHILS # (AUTO) 5.2 K/uL (1.8-7.7); NEUTROPHILS % (AUTO) 82.6 % (42.2-75.2); PLATELET COUNT (AUTO) 364 K/uL (140-450); RED BLOOD CELL COUNT(AUTO) 2.93 MIL/uL (4.20-6.10); RED CELL DISTRIBUTION WIDTH 15.2 % (11.6-13.7); WHITE BLOOD COUNT (AUTO) 6.3 K/uL (4.8-10.8)
--- NOTE | 2019-10-05 06:32 | NUR ---
GAVE PT ATIVAN 2 MG FOR AGITATION RELATED TO PT APPEARING RESTLESS IN BED
[2019-10-05] MEDS: BLOOD GLUCOSE MONITORING 1 DEV DEV FS SCH ×4 (07:06→20:53)
--- NOTE | 2019-10-05 07:20 | NUR ---
REPORT GIVEN TO DAY SHIFT RN NO SIGNS OF DISTRESS OBSERVED AT THIS TIME
--- NOTE | 2019-10-05 07:30 | NUR ---
RECEIVED PT FROM PM SHIFT RN PT IS SEDATED WITH PROPOFOL 50 MCG/KG/MIN BASED ON DRY WEIGHT 140 KG. RASS -4. PT ON PRONE POSITION. ETT TO VENT FIO2 35 VT 450 RR 28 PEEP 5. EFE PICC LINE INFUSING PROPOFOL AND MORPHINE 10MG/HR, PT HAS RECTAL THERMOMETER IN PLACE SHOWS TEMP 98.0F. PT ALSO HAS OG TUBE IN PLACE , HOLD TUBE FEEDING. PULSES PALPABLE UPPER AND LOWER EXTREMITIES. SKIN NON INTACT ( SEE WOUND ASSESSMENT ) HOB 30 DEGREES PER PROTOCOL, SAFETY PROTOCOLS IN PLACE WITH BED IN LOWEST SETTING, WILL CONTINUE TO MONITOR PT.
--- NOTE | 2019-10-05 07:51 | NUR ---
RECEIVED INTUBATED PT WITH A 8.0 ETT SECURED @20 TEETH/GUM ON VENT. SETTINGS AC 28, VT 450, PEEP 5 AND FIO2 35%. PT IN THE PRONE POSITION AT THIS TIME TOLERATING VENT SETTINGS WELL, NOT IN ANY DISTRESS. AIRWAY IS PATENT AND SECURE. VENT IS PLUGGED INTO A RED OUTLET WITH ALARMS ON AND FUNCTIONING. WILL CONTINUE TO MONITOR Addendum: 10/05/19 at 0918 by Tye Beavers RT [id number] CORRECTED VENT SETTINGS RECEIVED PT ON SETTINGS AC 28 VT 500, PEEP 5 AND FIO2 35%
[2019-10-05] MEDS: ZINC SULF 220 MG CAP PO SCH ×2 (09:00→09:03)
[2019-10-05] MEDS: ASCORBIC ACID 500 MG TAB PO SCH ×2 (09:00→09:04)
--- NOTE | 2019-10-05 09:00 | NUR ---
DUE MEDS DID NOT GIVE DUE TO PT ON PRONE POSITION. UNABLE TO VERIFY PLACEMENT. DR. CROOK AND CHARGE NURSE MADE AWARE .
[2019-10-05] MEDS: methylPREDNISolone SS 40 MG/ML VIAL IVP SCH ×2 (09:03→20:25)
[2019-10-05] MEDS: PANTOPRAZOLE 40 MG INJ VIAL IVP SCH ×2 (09:03→20:25)
[2019-10-05] MEDS: ENOXAPARIN 100 MG/ML SYR SUBQ SCH ×2 (09:06→20:26)
[2019-10-05 10:07] LABS: ANION GAP 14.6 (8-16); CARBON DIOXIDE 29.3 mmol/L (21-32); CREATININE 1.2 mg/dL (0.6-1.3); POTASSIUM 4.9 mmol/L (3.5-5.1)
--- NOTE | 2019-10-05 10:10 | NUR ---
DR. HOFFMANN IN UNIT, UPDATED PT'S CONDITION, PER DR. HOFFMANN, START PT ON SEDATION VACATION, CALLED RT TO UNIT.
[2019-10-05 10:12] LABS: PHOSPHORUS 4.5 mg/dL (2.5-4.9)
--- NOTE | 2019-10-05 10:35 | NUR ---
PT PLACED TO SUPINE OUT OF PRONE POSITION. ETT REMAINS SECURE WITH A PATENT AIRWAY. WILL CONTINUE TO MONITOR.
--- NOTE | 2019-10-05 10:41 | NUR ---
PT PLACED ON CPAP 5 PS 10 FIO2 35%. VENT ALARMS SET APPROPRIATELY. WILL CONTINUE TO MONITOR.
--- NOTE | 2019-10-05 11:55 | NUR ---
REORIENTED PT ENVIRONMENT, EXPLAINED HE IS IN HOSPITAL DUE TO HE WAS UNABLE TO BREATH ON HIS OWN. WE ARE TRYING TO TAKE THE TUBE OUT IF HE CAN PASS THE TEST WE ARE DOING RIGHT NOW. TOLD PT PLEASE DO NOT TAKE THE TUBE OUT BY HIMSELF. ASKED PT TO SQUEEZE MY HAND IF HE UNDERSTAND ME. PT SQUEEZED MY HAND.
--- NOTE | 2019-10-05 12:08 | NUR ---
PAGED REGARDING ABG RESULTS.PT REMAINS ON SBT CPAP 5 PS 10 FIO2 35% TOLERATING WELL PT ABLE TO OPEN EYES FOLLOW SIMPLE COMMANDS. ABG RESULTS GIVEN TO RESIDENT DOCTORS.
--- NOTE | 2019-10-05 12:35 | NUR ---
10/05/19 RD FOLLOW UP COMPLETED PLEASE REFER TO NUTRITION ASSESSMENT UNDER CARE ACTIVITY FOR ESTIMATED NUTRITIONAL NEEDS. 1. CONTINUE WITH VITAL HIGH PROTEIN @ 80 ML/HR GOAL. RESTART FEEDINGS @ 80 IF TOLERATED -VITAL HP AT 80 ML/HR WILL PROVIDE 1920 CALORIES AND 168 GM OF PROTEIN WHICH MEETS 100% OF ESTIMATED NEEDS 2. CONTINUE FREE WATER FLUSH OF 100 ML Q6H PER MD 3. CONTINUE VITAMIN C AND ZINC FOR SKIN INTEGRITY 4. IF PATIENT IS EXTUBATED, CONSIDER ORDERING SWALLOW EVALUATION 5. RD TO FOLLOW-UP 2-3 DAYS, HIGH RISK DEB YUN RD
--- NOTE | 2019-10-05 12:45 | NUR ---
PT EXTUBATED WITHOUT INCIDENT AND PLACED ON 5L NC. PT ABLE TO OPEN EYES AND FOLLOW COMMANDS. NO STRIDOR HEARD ON AUSCULTATION. WILL CONTINUE TO MONITOR. NURSE MADE AWARE.
--- NOTE | 2019-10-05 13:30 | NUR ---
CHARGE NURSE WENT INTO PT'S ROOM WHILE I WAS TAKING CARE ANOTHER PT. CHARGE NURSE TOLD ME PT STATED HE WAS WORRIED HE WILL . CHARGE NURSE COMFORTED PT .
--- NOTE | 2019-10-05 14:00 | NUR ---
TURNED AND REPOSITIONED WITH HOUSE SUP, RTS, THE WHOLE BED CHANGED, BED BATH GIVEN.
--- NOTE | 2019-10-05 15:13 | NUR ---
ST: BEDSIDE SWALLOW EVAL DONE SWALLOW EVAL WAS RECEIVED AND VERIFIED. RN, JHONNY, CLEARED Pt FOR SWALLOW EVAL. Pt WAS SEEN AT BEDSIDE. HOB NEAR 90 DEGREES FOR ASPIRATION PRECAUTIONS. Pt WAS LETHARGIC, BUT ALERT, RESPONSIVE, VERBAL, AND OVERALL COOPERATIVE. Pt WAS EXTUBATED ~12:35 PER RN. Pt CURRENTLY ON 5L O2 VIA NC. Pt HAD OG TUBE FOR NUTRITION. ST REQUESTED OG TUBE BE REMOVED PRIOR TO SWALLOW EVAL. Pt WAS ABLE TO TOLERATE PUREE, MSC, HTL BY TSP, NTL BY TSP, AND THIN LIQUIDS BY STRAW, CONTINUOUS SIPS OKAY, W/O DIFFICULTY OR OVERT S/S OF ASPIRATION OR PENETRATION NOTED. Pt'S MASTICATION WAS SLOWED D/T LETHARGY, BUT ADEQUATE. AP TRANSFERS AND SWALLOW RESPONSES WERE TIMELY WITH FULL LARYNGEAL ELEVATION AND EXCURSION. Pt WEAK AND LETHARGIC, REQUIRING FEEDER AT THIS TIME. REC MSC FOOD AND THIN LIQUIDS, STRAW OKAY. ASPIRATION PRECAUTIONS, ORAL CARE, AND FEEDER NEEDED. HOLD FEEDING IF Pt TOO LETHARGIC. REC TO ADVANCE TO FEEDING SELF ONCE STRONG ENOUGH TO DO SO. ADDITIONAL ST FOR SWALLOW NOT INDICATED AT THIS TIME.
--- NOTE | 2019-10-05 15:20 | NUR ---
WENT INTO PT'S ROOM, PT STATED HE DOES NOT WANT TO STAY BY HIMSELF, EXPLAINED TO PT I WILL TRY TO CHECK HIM FREQUENTLY BUT I ALSO HAVE OTHER PTS SO I CAN NOT STAY WITH HIM ALL THE TIME. OFFERED PT WATER, THEN TURNED ON TV TO LET PT WATCH TV.
--- NOTE | 2019-10-05 15:39 | NUR ---
PT RESTING IN BED, WATCHING TV. ALL NEEDS MET AT THIS TIME. PT ON O2 NC 5L/MIN, O2 SATS 97%, RR 14. WILL CONTINUE TO MONITOR.
--- NOTE | 2019-10-05 15:50 | NUR ---
PT CALLED AGAIN, ASKED PT WANT TO CALL HIS SISTER OR NOT. PT SAID " YES" , TOOK NURSE STATION PHONE TO PT'S ROOM, IT DID NOT GET THROUGH. EXPLAINED TO PT, MAYBE HIS SISTER WAS BUSY.
--- NOTE | 2019-10-05 16:08 | NUR ---
PT CALLED, WENT INTO PT'S ROOM, PT STATED HE WANT TO URINATE. EXPLAINED TO PT HE HAS FOLY CATH IN PLACE, HE DOES NOT NEED TO GO RESTROOM. SHOWED PT'S URINE BAG TO PT. TOLD HIM ALL THE URINE CAME INTO THIS BAG.
[2019-10-05] MEDS: ONDANSETRON 4 MG/2 ML VIAL IM/IVP PRN ×2 (16:32→22:23)
--- NOTE | 2019-10-05 16:32 | NUR ---
PT CALLED, STATED HE HAS NAUSEA, ZOFRAN GIVEN TO PT.
--- NOTE | 2019-10-05 17:15 | NUR ---
PT STATED HE IS HUNGRY, CALLED [employer] AND OFFERED PT APPLE SAUCE, ORANGE JUICE. PT DOES NOT WANT, ONLY DRINK SOME WATER.
--- NOTE | 2019-10-05 17:40 | NUR ---
PT STATED HE WANTS HIS SISTER COME TO HERE TO VISIT HIM, TOLD PT HIS SISTER CAN NOT COME TO HIS ROOM DUE TO COVID. EXPLAINED TO PT HE IS DOING BETTER, HE WILL SEE HIS SISTER SOON.
--- NOTE | 2019-10-05 18:20 | NUR ---
FEED PT, PT ONLY ATE 10% OF THE FOOD. PT STATED HE DOES NOT WANT TO EAT. HE JUST WANT TO DRINK WATER. URINE SAMPLE SENT TO LAB FOR CULTURE.
[2019-10-05 18:42] LABS: APPEARANCE,URINE CLEAR (CLEAR); BILIRUBIN,URINE 1+ (NEGATIVE); BLOOD, URINE 2+ (NEGATIVE); COLOR,URINE YELLOW (YELLOW); LEUKOCYTE ESTERASE ,URINE NEGATIVE (NEGATIVE); NITRITE, URINE NEGATIVE (NEGATIVE); UGLUCOSE NEGATIVE (NEGATIVE)
--- NOTE | 2019-10-05 18:45 | NUR ---
PT CONSTANTLY CALLING,WENT INTO PT'S ROOM, OFFERED PT WATER.REPOSITIONED PT, ONCE I CAME OUT OF PT'S ROOM, PT CALL NURSE AGAIN. EXPLAINED TO PT I ALSO HAVE OTHER PT TO TAKE CARE OF. I CAN NOT STAY WITH PT ALL THE TIME. NOTIFIED CHARGE NURSE AND DR. ABRAHAM, PT O2 SATS 97%. RR 19, HR 98.BP 135/73.
--- NOTE | 2019-10-05 19:17 | NUR ---
ENDORSED PT TO PM SHIFT RN.
--- NOTE | 2019-10-05 19:18 | NUR ---
RECEIVED BEDSIDE SHIFT REPORT FROM AM NURSE FOR CONTINUITY OF CARE. PATIENT AWAKE IN BED NO SIGNS OF DISTRESS NOTED. RESPIRATIONS EVEN AND UNLABORED ON 5L O2 VIA NC. BEDSIDE MONITOR ATTACHED.
[2019-10-05 20:54] LABS: RBC,URINE 11-20 (MOD) /HPF (0-5); WBC,URINE 0-5 /HPF (0-5)
--- NOTE | 2019-10-05 21:40 | NUR ---
PT REQUESTED A SODA BECAUSE HE IS THIRSTY. PATIENT PROVIDED THE SODA PER HIS REQUEST. PT HAD DIFFICULTY DRINKING THE DRINK. PROVIDED ICE CHIPS INSTEAD.
--- NOTE | 2019-10-05 22:23 | NUR ---
PT AGITATED AND YELLING. STATES HE IS UNABLE TO SLEEP BECAUSE OF ANXIETY AND ITS UPSETTING HIM, PT ALSO COMPLAINED OF NAUSEA. ADMINISTERED PRN ATIVAN AND ZOFRAN PER MD ORDER. PT TOLERATED WELL NO SIGNS OF DISTRESS NOTED. V/S WITHIN NORMAL LIMITS
[2019-10-06] VITALS: BP 121/86
--- NOTE | 2019-10-06 | NUR ---
PT STILL VERY RESTLESS; WASHED AND CHANGED.ALL LINENS CHANGED.REPOSITIONED.STILL ON 02NC AT 5LPM.MONTERO CATHETER INTACT.DENIES PAIN WHEN ASKED.
--- NOTE | 2019-10-06 02:36 | NUR ---
PT DOZING ON AND OFF; RESTLESS WHEN AWAKE.NO SOB NOTED.DENIES PAIN
[2019-10-06] MEDS: LORazepam 2 MG/ML VIAL IVP PRN ×3 (02:45→21:38)
--- NOTE | 2019-10-06 02:46 | NUR ---
PT STILL VERY AGITATED; YELLING; TRYING TO GET OUT OF BED.ATIVAN GIVEN ORDERED.WILL CONTINUE TO CLOSELY MONITOR PT.
--- NOTE | 2019-10-06 03:09 | NUR ---
PTS EYES CLOSED; NO AGITATION NOTED.02SAT 96% ON 02NC AT 5LPM.FLACC 0
[2019-10-06 04:00] VITALS: BP 122/55
--- NOTE | 2019-10-06 04:45 | NUR ---
PT AWAKE AGAIN; YELLING.REPOSITIONED.DENIES PAIN.NO SOB NOTED.02SAT 97%
--- NOTE | 2019-10-06 05:04 | NUR ---
NURSE WENT INSIDE AGAIN; PT WANTED HOB ELEVATED.DONE.WHEN RN WENT OUT, PT WANTED NURSE TO GO INSIDE AGAIN.THIS TIME; PT REPOSITIONED FOR COMFORT.
[2019-10-06 05:41] LABS: ANION GAP 13.4 (8-16); CARBON DIOXIDE 28.5 mmol/L (21-32); POTASSIUM 4.9 mmol/L (3.5-5.1)
[2019-10-06 05:45] LABS: PHOSPHORUS 3.2 mg/dL (2.5-4.9)
--- NOTE | 2019-10-06 06:24 | NUR ---
BS CHECKED 99; NO INSULIN COVERAGE REQUIRED.PT CONTINUOUSLY YELLING THIS SHIFT
[2019-10-06 06:34] LABS: HEMATOCRIT 32.4 % (36-52); HEMOGLOBIN 11.5 g/dL (12.0-18.0); MEAN CORPUSCULAR HEMOGLOBIN 33 pg (27-31); MEAN CORPUSCULAR HGB CONC 35 g/dL (33-37); PLATELET COUNT (AUTO) 444 K/uL (140-450); RED BLOOD CELL COUNT(AUTO) 3.45 MIL/uL (4.20-6.10); RED CELL DISTRIBUTION WIDTH 15.1 % (11.6-13.7); WHITE BLOOD COUNT (AUTO) 9.9 K/uL (4.8-10.8)
[2019-10-06] MEDS: BLOOD GLUCOSE MONITORING 1 DEV DEV FS SCH ×4 (06:44→21:38)
[2019-10-06 08:00] VITALS: BP 140/79
--- NOTE | 2019-10-06 08:00 | NUR ---
Patient resting in bed, and is awake for breakfast. He is on 5 liters NC and breathing with slight tachpnea, 02 sat 97%.\ Tye Raymond RN
[2019-10-06] MEDS ORDERED: FLUCONAZOLE 100 MG/NS PREMIX 50 ML IV SCH (09:00)
[2019-10-06 10:18] LABS: BASOPHILS % (MANUAL) 0 % (0-2); EOSINOPHILS % (MANUAL) 0 % (0-4); LYMPHOCYTES % (MANUAL) 11 % (20-46); MONOCYTES % (MANUAL) 6 % (5-12)
[2019-10-06] MEDS: PANTOPRAZOLE 40 MG INJ VIAL IVP SCH ×2 (10:53→20:49)
[2019-10-06] MEDS: ASCORBIC ACID 500 MG TAB PO SCH (10:55)
[2019-10-06] MEDS: methylPREDNISolone SS 40 MG/ML VIAL IVP SCH ×2 (10:55→20:49)
[2019-10-06] MEDS: ZINC SULF 220 MG CAP PO SCH (10:56)
[2019-10-06] MEDS: ENOXAPARIN 100 MG/ML SYR SUBQ SCH ×2 (10:58→21:27)
[2019-10-06 12:00] VITALS: BP 145/82
--- NOTE | 2019-10-06 12:00 | NUR ---
Patient BS 111, and no insulin necessary per sliding scale per do. Feed patient entire lunch. Patient still very weak and needs help. He can dangle at bedside however is quite unsteady, and needs balance corrected. Tye Raymond RN
[2019-10-06 16:00] VITALS: BP 140/88
--- NOTE | 2019-10-06 18:15 | NUR ---
Patiemt BS 39, and feed patient complete dinner, and given D 50 W 1 amp per do. Follow up BS 263, and charge nurse aware. Tye Raymond RN
--- NOTE | 2019-10-06 19:00 | NUR ---
Patient had large pasty stool, cleaned and linens changed. Tye Raymond RN
[2019-10-06 20:00] VITALS: BP 119/80
--- NOTE | 2019-10-06 20:00 | NUR ---
REPORT GIVEN BY BETTY SIMS, PT IS AWAKE AND ALERT, NO S/S OF ANY RESP DISTRESS, NO SOB. PT CONT ON O2 AT 5 LPM VIA N/C. PT IS TELE STATUS,STILL WAITING FOR THE ROOM AVAILABLE. CONT ON PRODUCTION HONING MACHINE OPERATOR AND ST NOTED ON MONITOR. PICC LINE TO EFE INTACT WELL AND FLUSH WELL. PT DENIAL ANY PAIN AT THIS TIME. PT HAS LARGE BM WITH AM SHIFT. ABD SOFT NON DISTENDED.SKIN WARM TO TOUCH. F/C IN PLACE WITH YELLOW CLEAR URINE. GENTLE CARE GIVEN.KEPT CLEAN AND DRY.
--- NOTE | 2019-10-06 20:30 | NUR ---
BLOOD SUGAR 132 NO INSULIN COVERAGE NEED.
--- NOTE | 2019-10-06 22:26 | NUR ---
VANDA SISTER CALLED AND UP DATED PT CONDITION MADE VANDA AWARE PT WITH EPISODE ANXIETY AND SCREAMING AND ATIVAN WAS GIVEN TO RELAX PT . MEDICATION HELP PT MORE RELAX AND TRYING TO SLEEPING AT THIS TIME.
[2019-10-07] VITALS: BP_SYST 143; BP_SYST 147; BP_DIAS 84; BP_DIAS 89
--- NOTE | 2019-10-07 00:10 | NUR ---
PT NO FEVER T 97.9 SPO2 98%. PT IS AWAKE. ASKING FOR SOFT DRINK AND WATER. PT DRANK WELL.
[2019-10-07] MEDS: LORazepam 2 MG/ML VIAL IVP PRN ×3 (02:21→20:39)
--- NOTE | 2019-10-07 02:22 | NUR ---
PT IS ANXIOUS,KEEP SCREAMING. PRN ATIVAN GIVEN ORDER. CONTINUE TO MONITOR CLOSELY.
--- NOTE | 2019-10-07 03:00 | NUR ---
PT SLEEPING EASY TO AWAKE
[2019-10-07 04:00] VITALS: BP 147/84
--- NOTE | 2019-10-07 05:30 | NUR ---
AM CARE GIVEN. KEPT PT CLEAN AND DRY.
[2019-10-07] MEDS ORDERED: HYDROcodone/APAP 10/325 MG 1 TAB TAB PO PRN (06:10)
--- NOTE | 2019-10-07 06:30 | NUR ---
BLOOD SUGAR 129,NO COVERAGE NEED.TRANSFER PT TO ROOM 116.REPORT GIVEN TO MARY ANN SIMS.PT IS AWAKE ALERT AND STABIL AT THIS TIME.
--- NOTE | 2019-10-07 06:30 | NUR ---
RECEIVED FROM ICU PT. AWAKE AND ALERT. NO SOB. NO RESTLESSNESS NOTED. PT. TRANSFER FROM ICU WITH DX. OF MULTI FOCAL PNA, HYPOXIA AND A POSITIVE COVID 19. WILL CONTINUE WITH CURRENT CARE PLANS FOR AM. ISOLATION PRECAUTIONS WILL BE OBSERVED. TELEMETRY MONITORING.
[2019-10-07] MEDS: BLOOD GLUCOSE MONITORING 1 DEV DEV FS SCH ×4 (06:59→20:49)
[2019-10-07 07:11] LABS: ANION GAP 12.3 (8-16); CARBON DIOXIDE 28.3 mmol/L (21-32); POTASSIUM 4.6 mmol/L (3.5-5.1)
[2019-10-07 07:15] LABS: PHOSPHORUS 3.2 mg/dL (2.5-4.9)
--- NOTE | 2019-10-07 07:41 | NUR ---
REPORT ALSO GIVEN TO JIN RN AM SHIFT REGARDING PT DX AND CONDITION,MADE AWARE BLOOD DRAWN DONE,BLOOD SUGAR 129.PT ALERT ORIENTED AND VERBAL RESPONSE.STABLE AT THIS TIME.
--- NOTE | 2019-10-07 07:42 | NUR ---
RECEIVED REPORT FROM NIGHT RN. PT AOX4, NO C/O PAIN, NO S/S OF ANY RESP DISTRESS, NO SOB. ON O2 AT 5 LPM VIA N/C. CONT ON VEGETABLE WASHING MACHINE OPERATOR. PICC LINE TO EFE INTACT WELL AND FLUSH WELL. F/C IN PLACE WITH YELLOW CLEAR URINE. KEPT CLEAN AND DRY. CALL LIGHT WITHIN REACH. WILL CONT TO MONITOR
[2019-10-07 08:00] VITALS: BP 128/80
--- NOTE | 2019-10-07 08:30 | NUR ---
DUE MORNING MEDS GIVEN. TOLERATED WELL. ASSISTED PT TO USE BEDPAN
[2019-10-07 08:37] LABS: HEMATOCRIT 35.1 % (36-52); HEMOGLOBIN 11.8 g/dL (12.0-18.0); MEAN CORPUSCULAR HEMOGLOBIN 30 pg (27-31); MEAN CORPUSCULAR HGB CONC 34 g/dL (33-37); MEAN CORPUSCULAR VOLUME 89.9 fL (80-94); PLATELET COUNT (AUTO) 499 K/uL (140-450); RED CELL DISTRIBUTION WIDTH 15.2 % (11.6-13.7); WHITE BLOOD COUNT (AUTO) 11.3 K/uL (4.8-10.8)
[2019-10-07] MEDS: PANTOPRAZOLE 40 MG INJ VIAL IVP SCH ×2 (08:45→20:34)
[2019-10-07] MEDS: ASCORBIC ACID 500 MG TAB PO SCH (08:46)
[2019-10-07] MEDS: ZINC SULF 220 MG CAP PO SCH (08:46)
[2019-10-07] MEDS: methylPREDNISolone SS 40 MG/ML VIAL IVP SCH ×2 (08:46→20:34)
[2019-10-07] MEDS: ENOXAPARIN 100 MG/ML SYR SUBQ SCH ×2 (09:00→20:37)
--- NOTE | 2019-10-07 10:00 | NUR ---
SOCKET PULLER AT BEDSIDE CLEANING PT
[2019-10-07 10:21] LABS: BASOPHILS % (MANUAL) 0 % (0-2); EOSINOPHILS % (MANUAL) 0 % (0-4); LYMPHOCYTES % (MANUAL) 11 % (20-46); MONOCYTES % (MANUAL) 5 % (5-12)
[2019-10-07 12:00] VITALS: BP 143/68
--- NOTE | 2019-10-07 12:06 | NUR ---
WITH COMPLAINTS OF CRAMPING ABD PAIN 01/20. NORCO GIVEN ORDERED. WILL REASSESS IN 1 HOUR
--- NOTE | 2019-10-07 12:30 | NUR ---
WITH C/O FEELINGS OF RESTLESSNESS. ATIVAN GIVEN ORDERED. WILL REASSES IN 1 HOUR
--- NOTE | 2019-10-07 15:02 | NUR ---
PT AWAKE IN BED WATCHING TV. NO C/O PAIN, NO SOB
[2019-10-07 16:00] VITALS: BP 119/67
--- NOTE | 2019-10-07 17:00 | NUR ---
IN BED. NO C/O PAIN, NO SOB. BLOOD SUGAR 116. NO COVERAGE.
--- NOTE | 2019-10-07 19:10 | NUR ---
ENDORSED TO MINILAB OPERATOR NURSE FOR CONTINUITY OF CARE. IN STABLE CONDITION
--- NOTE | 2019-10-07 19:20 | NUR ---
RECEIVED BEDSIDE REPORT FROM DAY SHIFT NURSE. PATIENT IS AWAKE, ALERT, AND COOPERATIVE. RESPIRATION EVEN UNLABORED ON 5L NC O2. NO DISTRESS NOTED. SKIN IS WARM AND DRY. RIGHT UPPER PICC LINE NOTED PATENT AND INTACT. PLAN OF CARE WAS DISCUSSED. ALL SAFETY MEASURES IN PLACE. BED IS AT LOW POSITION. CALL LIGHT WITHIN REACH AND VERBALIZES ITS USE. WILL CONTINUE TO MONITOR.
[2019-10-07 20:00] VITALS: BP 126/64
--- NOTE | 2019-10-07 20:40 | NUR ---
ALL SCHEDULED MEDS ADMINISTERED PER ORDER. NO ASE NOTED. PATIENT COMPLAINED OF ANXIETY. ATIVAN MEDICATION GIVEN PER ORDER. WILL CONTINUE TO MONITOR.
--- NOTE | 2019-10-07 23:00 | NUR ---
CHECKED PATIENT. PATIENT IS WATCHING TV RESPIRATION EVEN UNLABORED ON 5L NC O2. NO DISTRESS NOTED. WILL CONTINUE TO MONITOR.
--- NOTE | 2019-10-07 23:50 | NUR ---
VITALS WERE TAKEN. PATIENT IN STABLE CONDITION. WILL CONTINUE TO MONITOR.
[2019-10-08] VITALS: BP 140/82
--- NOTE | 2019-10-08 00:43 | NUR ---
DRESSING CHANGED AND TOOK PICTURES OF THE WOUND.
--- NOTE | 2019-10-08 01:45 | NUR ---
CHECKED PATIENT. PATIENT SLEEPING RESPIRATION EVEN UNLABORED ON 2L NC O2. NO DISTRESS NOTED. WILL CONTINUE TO MONITOR. Addendum: 10/08/19 at 0145 by Bruce Ashford RN 5L NC O2
[2019-10-08 04:00] VITALS: BP 120/79
--- NOTE | 2019-10-08 04:15 | NUR ---
VITALS WERE TAKEN. PATIENT IN STABLE CONDITION. NO DISTRESS NOTED.
[2019-10-08] MEDS: BLOOD GLUCOSE MONITORING 1 DEV DEV FS SCH ×4 (06:00→21:44)
--- NOTE | 2019-10-08 07:13 | NUR ---
ENDORSED PATIENT TO DAY SHIFT NURSE. PATIENT IN STABLE CONDITION.
--- NOTE | 2019-10-08 07:15 | NUR ---
RECEIVED REPORT FROM NIGHT NURSE PT IS AT 5LPM O2 VIA NC WILL CONTINUE TO MONITOR.
[2019-10-08 08:00] VITALS: BP 128/68
[2019-10-08 08:41] LABS: BASOPHILS % (AUTO) 0.4 % (0.0-2.0); EOSINOPHILS # (AUTO) 0.1 K/uL (0-0.4); EOSINOPHILS % (AUTO) 0.9 % (0.0-4.0); HEMATOCRIT 37.1 % (36-52); HEMOGLOBIN 11.9 g/dL (12.0-18.0); LYMPHOCYTES # (AUTO) 1.2 K/uL (2.0-11.5); MEAN CORPUSCULAR HEMOGLOBIN 28 pg (27-31); MEAN CORPUSCULAR HGB CONC 32 g/dL (33-37); MEAN CORPUSCULAR VOLUME 88.3 fL (80-94); MONOCYTES # (AUTO) 0.8 K/uL (0.8-1.0); MONOCYTES % (AUTO) 6.7 % (1.7-9.3); NEUTROPHILS # (AUTO) 9.5 K/uL (1.8-7.7); PLATELET COUNT (AUTO) 475 K/uL (140-450); RED BLOOD CELL COUNT(AUTO) 4.21 MIL/uL (4.20-6.10); RED CELL DISTRIBUTION WIDTH 14.7 % (11.6-13.7); WHITE BLOOD COUNT (AUTO) 11.6 K/uL (4.8-10.8)
[2019-10-08] MEDS: ASCORBIC ACID 500 MG TAB PO SCH (09:47)
[2019-10-08] MEDS: ZINC SULF 220 MG CAP PO SCH (09:47)
[2019-10-08] MEDS: methylPREDNISolone SS 40 MG/ML VIAL IVP SCH ×2 (09:48→21:18)
[2019-10-08] MEDS: PANTOPRAZOLE 40 MG INJ VIAL IVP SCH ×2 (09:48→21:18)
[2019-10-08] MEDS: ENOXAPARIN 100 MG/ML SYR SUBQ SCH ×2 (09:49→21:20)
[2019-10-08 11:47] LABS: ALBUMIN 2.7 g/dL (3.4-5.0); ANION GAP 15.3 (8-16); CARBON DIOXIDE 25.1 mmol/L (21-32); CREATININE 0.7 mg/dL (0.6-1.3); MAGNESIUM 1.9 mg/dL (1.8-2.4); PHOSPHORUS 3.5 mg/dL (2.5-4.9); POTASSIUM 4.4 mmol/L (3.5-5.1); TOTAL BILIRUBIN 0.5 mg/dL (0.0-1.0)
[2019-10-08 12:00] VITALS: BP 118/62
[2019-10-08 16:00] VITALS: BP 104/81
--- NOTE | 2019-10-08 16:14 | NUR ---
10/08/19 RD FOLLOW UP COMPLETED. PLEASE REFER TO NUTRITION ASSESSMENT UNDER CARE ACTIVITY FOR ESTIMATED NUTRITIONAL NEEDS. CONTINUE TO ADVANCE DIET TOLERATED TO REGULAR TEXTURES RD TO FOLLOW-UP IN 3-5 DAYS PATIENT IS MODERATE RISK. JOANA VAZ, RD
[2019-10-08] MEDS: ACETAMINOPHEN 325 MG TAB PO PRN (18:12)
--- NOTE | 2019-10-08 19:05 | NUR ---
ENDORSED TO NIGHT NURSE.PT IS STABLE
--- NOTE | 2019-10-08 19:15 | NUR ---
ENDORSED PT TO NIGHT NURSE.PT IS STABLE
--- NOTE | 2019-10-08 19:16 | NUR ---
RECEIVED ENDORSEMENT FROM AM SHIFT RN. PATIENT IS LYING IN BED. AWAKE. NO SOB. O2 AT 5L NC. NKA. FULL CODE. PATIENT IS POSITIVE COVID 19. DROPLET AND CONTACT ISOLATION PRECAUTION OBSERVED AT ALL TIMES. PLAN OF CARE WAS DISCUSSED. CALL LIGHT WITHIN REACH. WILL CONTINUE TO MONITOR.
[2019-10-08 20:00] VITALS: BP 116/72
--- NOTE | 2019-10-08 21:00 | NUR ---
PATIENT IS AWAKE. NO SOB. DENIES PAIN. DUE MEDS GIVEN ORDERED. MED ED PROVIDED. TOLERATED WELL. NO A/R NOTED. CALL LIGHT WITHIN REACH. WILL CONTINUE TO MONITOR
[2019-10-09] VITALS: BP 104/78
--- NOTE | 2019-10-09 | NUR ---
V/S TAKEN AND RECORDED. NO SOB. CALL LIGHT WITHIN REACH. WILL CONTINUE TO MONITOR.
[2019-10-09 04:00] VITALS: BP 117/65
--- NOTE | 2019-10-09 04:00 | NUR ---
PATIENT IS AWAKE. RESPIRATION EVEN AND UNLABORED. V/S TAKEN AND RECORDED. CALL LIGHT WITHIN REACH. WILL CONTINUE TO MONITOR.
[2019-10-09] MEDS: BLOOD GLUCOSE MONITORING 1 DEV DEV FS SCH ×3 (05:58→16:36)
[2019-10-09 06:03] LABS: CKMB RELATIVE INDEX 0.1 (0.0-2.5); CREATINE KINASE MB 1.5 ng/mL (0-3.6)
--- NOTE | 2019-10-09 07:15 | NUR ---
PATIENT IS STABLE. WILL ENDORSE TO AM SHIFT RN FOR CONTINUITY OF CARE.
--- NOTE | 2019-10-09 07:20 | NUR ---
RECEIVED PT FROM PHOTOENGRAVING PROOFER NURSE. PT IS CURRENTLY ASLEEP, ALERT, AND LAYING IN BED WITH NO SIGNS OF DISTRESS NOTED AND SINUS RHYTHM. RESPIRATIONS ARE EVEN AND UNLABORED ON 5L NASAL CANNULA. SKIN IS WARM, DRY WITH IV ASYMPTOMATIC AND PATENT. PT DOES NOT COMPLAIN OF PAIN AT THIS TIME. SAFETY MEASURES IN PLACE, CALL LIGHT WITHIN REACH, AND WILL CONTINUE TO MONITOR.
[2019-10-09 08:00] VITALS: BP 119/63
[2019-10-09 09:12] LABS: BASOPHILS % (AUTO) 0.3 % (0.0-2.0); EOSINOPHILS # (AUTO) 0.1 K/uL (0-0.4); EOSINOPHILS % (AUTO) 0.6 % (0.0-4.0); HEMATOCRIT 36.5 % (36-52); HEMOGLOBIN 12.1 g/dL (12.0-18.0); LYMPHOCYTES # (AUTO) 1.2 K/uL (2.0-11.5); LYMPHOCYTES % (AUTO) 12.6 % (20.5-51.1); MEAN CORPUSCULAR HEMOGLOBIN 30 pg (27-31); MEAN CORPUSCULAR HGB CONC 33 g/dL (33-37); MONOCYTES # (AUTO) 0.6 K/uL (0.8-1.0); MONOCYTES % (AUTO) 6.8 % (1.7-9.3); NEUTROPHILS # (AUTO) 7.3 K/uL (1.8-7.7); NEUTROPHILS % (AUTO) 79.7 % (42.2-75.2); PLATELET COUNT (AUTO) 470 K/uL (140-450); RED CELL DISTRIBUTION WIDTH 14.5 % (11.6-13.7); WHITE BLOOD COUNT (AUTO) 9.1 K/uL (4.8-10.8)
[2019-10-09 09:16] LABS: ANION GAP 13.6 (8-16); CARBON DIOXIDE 28.4 mmol/L (21-32); CREATININE 0.8 mg/dL (0.6-1.3)
[2019-10-09 09:20] LABS: MAGNESIUM 1.8 mg/dL (1.8-2.4); PHOSPHORUS 3.5 mg/dL (2.5-4.9)
[2019-10-09] MEDS: PANTOPRAZOLE 40 MG INJ VIAL IVP SCH (09:55)
[2019-10-09] MEDS: methylPREDNISolone SS 40 MG/ML VIAL IVP SCH (09:55)
[2019-10-09] MEDS: ASCORBIC ACID 500 MG TAB PO SCH (09:55)
[2019-10-09] MEDS: ZINC SULF 220 MG CAP PO SCH (09:55)
[2019-10-09] MEDS: ENOXAPARIN 100 MG/ML SYR SUBQ SCH (09:59)
--- NOTE | 2019-10-09 09:59 | NUR ---
MEDICATIONS ADMINISTERED PER ORDER AND TOLERATED WELL. NO SIGNS OF DISTRESS NOTED OR COMPLAINTS OF PAIN. PATIENT FINISHED EATING BREAKFAST. PT ASKED FOR WATER. SAFETY MEASURES IN PLACE AND WILL CONTINUE TO MONITOR.
--- NOTE | 2019-10-09 10:10 | NUR ---
DR. CROOK INSTRUCTED TO TAKE PT OFF OF OXYGEN AND EVALUATE O2 SATURATIONS. PT WAS ON 5L NASAL CANNULA BEFORE BEING TAKEN OFF OF OXYGEN FOR 10 MINUTES. STARTED WITH AN O2 SATURATION OF 97% DROPPED DOWN TO 87% FOR ABOUT 30 SECONDS AFTER 5 MINUTES OFF OXYGEN. PT THEN WENT BACK UP TO 91% AND AVERAGED AND O2 SATURATION OF 90%-91% WITHOUT OXYGEN. DURING THIS TIME PT SHOWED NO SIGNS OF DISTRESS OR SOB. NASAL CANNULA 2L WAS PLACED BACK ON PT AND SATURATIONS ARE CURRENTLY AT 97%-98%.
--- NOTE | 2019-10-09 10:56 | NUR ---
PHYSICAL THERAPY EVALUATED PT. PT WAS ABLE TO SIT AT EDGE OF BED AND STAND UP. PT TOOK SIDE STEPS BUT BECAME FATIGUED. PHYSICAL THERAPY ADVISED LEG EXERCISES TO STRENGTHEN MUSCLES. PT VERBALIZED UNDERSTANDING. NO SIGNS OF DISTRESS NOTED DURING EXERCISES. SAFETY MEASURES IN PLACE AND WILL CONTINUE TO MONITOR.
[2019-10-09 12:00] VITALS: BP 116/69
[2019-10-09] MEDS: INSULIN LISPRO SLIDING SCALE 100 UNITS/ML VIAL SUBQ PRN (12:19)
--- NOTE | 2019-10-09 12:23 | NUR ---
BLOOD GLUCOSE WAS 157 AND 2 UNITS OF INSULIN WERE ADMINISTERED PER PARAMETER ORDERS. PT HAD LARGE BOWEL MOVEMENT. PT DOES NOT COMPLAIN OF PAIN AT THIS TIME. TOOK PT OFF OF OXYGEN AND PT O2 SATURATIONS WENT DOWN TO 87% PT O2 SATURATIONS DID NOT IMPROVE UNTIL PT WAS 2L NC WITH 97% SATURATIONS. LUNCH IS AT BEDSIDE AND WILL CONTINUE TO MONITOR.
--- NOTE | 2019-10-09 13:55 | NUR ---
PT IS CURRENTLY RECEIVING CHEST X-RAY AT BEDSIDE. PT IS TOLERATING WELL WITH NO SIGNS OF DISTRESS OR COMPLAINTS OF PAIN. SAFETY MEASURES IN PLACE AND WILL CONTINUE TO MONITOR.
--- NOTE | 2019-10-09 14:30 | NUR ---
PT IS CURRENTLY SITTING IN BED WITH NO SIGNS OF DISTRESS NOTED. NASAL CANNULA WAS REMOVED AND PT OXYGEN SATURATIONS WENT TO 87%. NASAL CANNULA 2LPM WAS PLACED BACK ON PT AND OXYGEN SATURATIONS WERE 97%
[2019-10-09] MEDS ORDERED: ASPI-1822 PO (17:01)
[2019-10-09] MEDS ORDERED: methylPREDNISolone SS 40 MG/ML VIAL IVP SCH (21:00)
== END 2019-10-09 18:27 | disposition home or self-care (01) | DRG 870 ==
LOC: EEVIPCON 22:05 → MED 22:05 → MMU 09-28 00:34 → MIC 09-28 00:35 → MTU 10-07 06:36
PROVIDERS: ADMIT General Practice; ATTEND General Practice
PROC: 5A1955Z Respiratory Ventilation, Greater than 96 Consecutive Hours (ICD-10-PCS; principal; 2019-09-28)
PROC: 0BH17EZ Insertion of Endotracheal Airway into Trachea, Via Natural or Artificial Opening (ICD-10-PCS; 2019-09-28)
PROC: 02HV33Z Insertion of Infusion Device into Superior Vena Cava, Percutaneous Approach (ICD-10-PCS; 2019-09-28)
PROC: B548ZZA Ultrasonography of Superior Vena Cava, Guidance (ICD-10-PCS; 2019-09-28)
DX: A41.9 Sepsis, unspecified organism (principal); J96.01 Acute respiratory failure with hypoxia; U07.1 COVID-19; J12.89 Other viral pneumonia; N17.0 Acute kidney failure with tubular necrosis; E87.1 Hypo-osmolality and hyponatremia; E44.0 Moderate protein-calorie malnutrition; E87.0 Hyperosmolality and hypernatremia; B37.0 Candidal stomatitis; D62 Acute posthemorrhagic anemia; J45.901 Unspecified asthma with (acute) exacerbation; Z68.42 Body mass index [BMI] 45.0-49.9, adult; E87.6 Hypokalemia; E87.8 Other disorders of electrolyte and fluid balance, not elsewhere classified; R73.9 Hyperglycemia, unspecified; E88.09 Other disorders of plasma-protein metabolism, not elsewhere classified; Z83.3 Family history of diabetes mellitus; E66.9 Obesity, unspecified; E83.41 Hypermagnesemia; T38.0X5A Adverse effect of glucocorticoids and synthetic analogues, initial encounter; Y92.89 Other specified places as the place of occurrence of the external cause; R65.20 Severe sepsis without septic shock
CPT/HCPCS: 36415; 36600; 71045; 80048; 80053; 80305; 81001; 82436; 82550; 82553; 82728; 82803; 82948; 83036; 83605; 83615; 83690; 83735; 83880; 83935; 84100; 84133; 84300; 84443; 84484; 85025; 85379; 85651; 86140; 87040; 87070; 87081; 87086; 87205; 87804; 92610; 93005; 94002; 94003; 96361; 96365; 96367; 97112; 97116; 97161-GP; 97530; 99291; A4649; C1751; C9113; J0456; J0696; J1450; J1642; J1650; J1940; J2060; J2250; J2270; J2405; J2704; J2920; J3010; J3490; J3535; J7030; J7060; Q0092